=== PATIENT | male | born 1980 | race Caucasian/White ===

== ENCOUNTER 2024-05-04 15:04 | Inpatient (IN) | payer BC, SELFPAY ==
[2024-05-04] VITALS (10 sets, daily range): BP systolic 73–143; BP diastolic 50–85; BMI 48.8; BMI 47.7; BMI 48.2
[2024-05-04 08:23] LABS: % Basophils 0.2 % (0-2); % Eosinophils 0.5 % (0-6); % Immature Granulocytes 0.6 % (0-0.5); % Lymphocytes 10.7 % (20.5-51.1); % Monocytes 11.6 % (1.7-9.3); % Neutrophils 76.4 % (42.2-75.2); Absolute Eosinophils 0.1 10^3/uL (0-0.7); Absolute Immature Granulocytes 0.1 10^3/uL (0-0.05); Absolute Lymphocytes 1.6 10^3/uL (1.2-3.4); Absolute Monocytes 1.8 10^3/uL (0.1-0.6); Absolute Neutrophils 11.6 10^3/uL (1.4-6.5); Hematocrit 37.9 % (39.0-52.0); Hemoglobin 13.4 g/dL (13.0-18.0); Mean Corp Hgb Conc. 35.4 g/dL (33.0-37.0); Mean Corpuscular Hgb 29.5 pg (27.0-31.0); Mean Corpuscular Volume 83.3 fL (80.0-94.0); Mean Platelet Volume 9.3 fL (7.4-10.4); Nucleated Red Blood Cells % 0 % (-); Platelet Count 240 10^3/uL (130-400); Red Blood Cell Count 4.55 10^6/uL (4.70-6.10); Red Cell Dist. Width 12.7 % (11.5-14.5); White Blood Cell Count 15.1 10^3/uL (4.8-10.8)
[2024-05-04 08:45] LABS: COVID-19 Antigen Negative (Negative)
[2024-05-04 08:50] LABS: ALT (SGPT) 47 U/L (0-50); AST (SGOT) 66 U/L (17-59); Albumin 4.3 g/dl (3.5-5.0); Alkaline Phosphatase 65 U/L (38-126); Blood Urea Nitrogen 17 mg/dl (9-20); Calcium 8.6 mg/dl (8.4-10.2); Carbon Dioxide 22 mmol/L (22-30); Chloride 97 mmol/L (98-107); Glucose 164 mg/dl (70-99); Lipase 52 U/L (23-300); Potassium 3.8 mmol/L (3.5-5.1); Sodium 134 mmol/L (135-145); Total Bilirubin 0.7 mg/dl (0.2-1.3); Total Protein 6.7 g/dl (6.3-8.2); eGFR 58.87
--- NOTE | 2024-05-04 09:57 | ED.GENMED ---
History of Present Illness
<Marlena Gan MD, Resident - Last Filed: 05/04/24 14:31>
General
Chief Complaint: Abdominal Pain
Source: patient and significant other
Exam Limitations: none
Time Seen by Provider: 05/04/24 09:28
Nursing documentation reviewed up to this point in time: agreed with
History of Present Illness
History of Present Illness:
44 year old male with history of HTN who presents to the ED for generalized abdominal discomfort, nausea, SOB and fever. Onset was 5 days ago with URI symptoms - cough productive of yellowish phlegm and sinus congestion. 3 days ago, he developed
fever and chills which progressed to include black watery diarrhea x 5-6 times daily, anorexia, nausea and bloating. Symptoms improved yesterday but worsened today, prompting his visit to the ED.
He did take Pepto-Bismol over the weekend, and has used DayQuil/NyQuil, Mucinex. He had a negative COVID test at home and is vaccinated for COVID with multiple boosters.
He has a history of peptic ulcer disease. And has had difficulty sleeping for the past 3 nights due to discomfort from abdominal bloating and SOB from sinus/chest congestion.
Denies chest pain, palpitations, urinary symptoms, testicular pain, recent travel or recent abx use.
Past History
<Marlena Gan MD, Resident - Last Filed: 05/04/24 14:31>
Past History
ED Past Medical History: HTN and Other (peptic ulcer disease)
ED Past Surgical History: None
Patient has exhibited threatening behavior?: No
Social History
Tobacco: Smoker
Alcohol: Binge drinker (10-12 drinks on the weekend)
Drug: None
Living: with family
Review of Systems
<Marlena Gan MD, Resident - Last Filed: 05/04/24 14:31>
Review of Systems
Allergies reviewed?: Yes
All Other Systems: ROS reviewed and negative except as documented in HPI and ROS
Phy Exam
<Marlena Gan MD, Resident - Last Filed: 05/04/24 14:31>
General Physical Exam
General Presentation: other (Appears uncomfortable)
General Skin: warm and dry
General Habitus: obese
General Mental: alert
General Hydration: dry mucous membranes
ENT Exam
ENT Exam: pharynx normal, neck supple and other (No cervical lymphadenopathy)
Eye Exam
Eye Exam: EOMI and conjunctiva normal
Cardiovascular Exam
Cardiovascular Exam: regular rate/rhythm and no murmur
Heart Sounds: distant
Pulmonary Exam
Pulmonary Exam: lungs clear, no rales, no crackles, no rhonchi, no stridor and no wheezing
Respiratory Effort: tachypnea
Gastrointestinal Exam
Gastrointestinal Exam: non tender, distended and other (decreased bowel sounds, no rebound, no guarding)
Course
<Marlena Gan MD, Resident - Last Filed: 05/04/24 14:31>
Orders/Labs/Results
Orders:
Orders
05/04/24 08:17
COVID-19 Antigen Urgent
Source: Nasal Swab
Complete Blood Count/With Diff Urgent
Comprehensive Metabolic Panel Urgent
Lipase Urgent
Influenza A+B Rapid Molecular Urgent
RUPINDER Source: Nasal Swab
Specimen Description:
05/04/24 10:17
Electrocardiogram (*1) Stat
Reason for Study: Shortness of Breath
EKG- Treatment ONCE
CR Chest - 2 Views Urgent
Reason For Exam: cough, SOB
05/04/24 10:20
0.9% Sodium Chloride 1000 ml [Nss] 1,000 ml IV BOLUS
05/04/24 10:23
Stool Culture Urgent
RUPINDER Source: Feces/Stool
Specimen Description:
Ondansetron Injectable [Zofran] 4 mg IV NOW STA
05/04/24 10:24
CT Abd/pelvis W Iv Cont Urgent
Comment:
Reason For Exam: Abdominal distention and diarrhea
05/04/24 12:03
Acetaminophen [Tylenol] 1,000 mg PO NOW STA
05/04/24 12:54
Albuterol [ProAIR HFA INHALER] 4 puff INH R NOW STA
05/04/24 14:00
CefTRIAXone [Rocephin] 2,000 mg IV NOW STA
05/04/24 14:07
Legionella Urinary Antigen Urgent
RUPINDER Source: Urine
Specimen Description:
Strep pneumoniae Antigen Urgent
RUPINDER Source: Urine
Specimen Description:
Azithromycin [Zithromax] 250 mg 0.9% Sodium Chloride 250 ml [Nss] 250 ml IV NOW
05/04/24 14:16
Blood Culture Urgent
RUPINDER Source: Blood/Venous
Specimen Description:
05/04/24 14:17
Admit/Transfer Patient As Directed
Co-Sign Provider:
Level of Care: Inpatient admission
Assign to:: Telemetry
Physician / Group: Htay
Diagnosis: Pneumonia,
Reason for Telemetry: Arrhythmia
Date to Stop Telemetry: 05/07/24
Time to Stop Telemetry: 11:00
Reason for Hospitalization: IV abx
Expected length of stay greater than two midnights?: Yes
ELOS- Estimated Length of Stay in days: 3
I certify the patient meets the requirements for IP care: Yes
05/04/24 14:18
Azithromycin [Zithromax] 250 mg 0.9% Sodium Chloride 250 ml [Nss] 250 ml IV NOW
PRN Pain Medication Management As Directed
May give lesser potent ordered pain med per pt: Yes
preference::
Protocol:: Medication orders for pain may be administered in a
manner that supports deferring to patient preference
when the pt is:
- Requesting an ordered lesser potent pain medication.
Least to most potent pain medications are defined
as: acetaminophen < NSAID < tramadol < opioids
(morphine, oxycodone, hydromorphone).
- Requesting a lesser dose of the same medication IF
ORDERED.
- Requesting a less intrusive route of administration
if both routes are prescribed by the provider (PO <
IV).
05/04/24 14:20
Code Status As Directed
Resuscitation Status: Full Code
05/04/24 14:23
Sputum Culture [Respiratory Culture/Gram Stain] Routine
RUPINDER Source: Sputum
Specimen Description:
05/07/24 11:00
DC Protocol for Telemetry ONCE
Abnormal Lab Results
05/04/24
08:17
WBC 15.1 H 10^3/uL
(4.8-10.8)
RBC 4.55 L 10^6/uL
(4.70-6.10)
Hct 37.9 L %
(39.0-52.0)
Abs Immat Gran (auto) 0.1 H 10^3/uL
(0-0.05)
Absolute Neuts (auto) 11.6 H 10^3/uL
(1.4-6.5)
Absolute Monos (auto) 1.8 H 10^3/uL
(0.1-0.6)
Immature Gran % 0.6 H %
(0-0.5)
Neutrophils % 76.4 H %
(42.2-75.2)
Lymphocytes % 10.7 L %
(20.5-51.1)
Monocytes % 11.6 H %
(1.7-9.3)
Sodium 134 L mmol/L
(135-145)
Chloride 97 L mmol/L
(98-107)
Creatinine 1.5 H mg/dL
(0.7-1.3)
Glucose 164 H mg/dl
(70-99)
AST 66 H U/L
(17-59)
05/04/24 08:17
05/04/24 08:17
Vital Signs
Initial and Last Documented VS:
Initial Vital Signs
Temp Pulse Resp BP Pulse Ox
98.7 F 125 20 116/78 94
05/04/24 08:06 05/04/24 08:06 05/04/24 08:06 05/04/24 08:06 05/04/24 08:06
Last Documented Vital Signs
Temp Pulse Resp BP Pulse Ox
102.7 F H 118 28 118/63 93
05/04/24 12:00 05/04/24 12:00 05/04/24 12:00 05/04/24 12:00 05/04/24 12:00
<Laurel Aguilera MD - Last Filed: 05/04/24 14:02>
Orders/Labs/Results
Orders:
Orders
05/04/24 08:17
COVID-19 Antigen Urgent
Source: Nasal Swab
Complete Blood Count/With Diff Urgent
Comprehensive Metabolic Panel Urgent
Lipase Urgent
Influenza A+B Rapid Molecular Urgent
RUPINDER Source: Nasal Swab
Specimen Description:
05/04/24 10:17
Electrocardiogram (*1) Stat
Reason for Study: Shortness of Breath
EKG- Treatment ONCE
CR Chest - 2 Views Urgent
Reason For Exam: cough, SOB
05/04/24 10:20
0.9% Sodium Chloride 1000 ml [Nss] 1,000 ml IV BOLUS
05/04/24 10:23
Stool Culture Urgent
RUPINDER Source: Feces/Stool
Specimen Description:
Ondansetron Injectable [Zofran] 4 mg IV NOW STA
05/04/24 10:24
CT Abd/pelvis W Iv Cont Urgent
Comment:
Reason For Exam: Abdominal distention and diarrhea
05/04/24 12:03
Acetaminophen [Tylenol] 1,000 mg PO NOW STA
05/04/24 12:54
Albuterol [ProAIR HFA INHALER] 4 puff INH R NOW STA
05/04/24 14:00
CefTRIAXone [Rocephin] 2,000 mg IV NOW STA
05/04/24 14:07
Legionella Urinary Antigen Urgent
RUPINDER Source: Urine
Specimen Description:
Strep pneumoniae Antigen Urgent
RUPINDER Source: Urine
Specimen Description:
Azithromycin [Zithromax] 250 mg 0.9% Sodium Chloride 250 ml [Nss] 250 ml IV NOW
05/04/24 14:16
Blood Culture Urgent
RUPINDER Source: Blood/Venous
Specimen Description:
05/04/24 14:17
Admit/Transfer Patient As Directed
Co-Sign Provider:
Level of Care: Inpatient admission
Assign to:: Telemetry
Physician / Group: Htay
Diagnosis: Pneumonia,
Reason for Telemetry: Arrhythmia
Date to Stop Telemetry: 05/07/24
Time to Stop Telemetry: 11:00
Reason for Hospitalization: IV abx
Expected length of stay greater than two midnights?: Yes
ELOS- Estimated Length of Stay in days: 3
I certify the patient meets the requirements for IP care: Yes
05/04/24 14:18
Azithromycin [Zithromax] 250 mg 0.9% Sodium Chloride 250 ml [Nss] 250 ml IV NOW
PRN Pain Medication Management As Directed
May give lesser potent ordered pain med per pt: Yes
preference::
Protocol:: Medication orders for pain may be administered in a
manner that supports deferring to patient preference
when the pt is:
- Requesting an ordered lesser potent pain medication.
Least to most potent pain medications are defined
as: acetaminophen < NSAID < tramadol < opioids
(morphine, oxycodone, hydromorphone).
- Requesting a lesser dose of the same medication IF
ORDERED.
- Requesting a less intrusive route of administration
if both routes are prescribed by the provider (PO <
IV).
05/04/24 14:20
Code Status As Directed
Resuscitation Status: Full Code
05/04/24 14:23
Sputum Culture [Respiratory Culture/Gram Stain] Routine
RUPINDER Source: Sputum
Specimen Description:
05/07/24 11:00
DC Protocol for Telemetry ONCE
Abnormal Lab Results
05/04/24
08:17
WBC 15.1 H 10^3/uL
(4.8-10.8)
RBC 4.55 L 10^6/uL
(4.70-6.10)
Hct 37.9 L %
(39.0-52.0)
Abs Immat Gran (auto) 0.1 H 10^3/uL
(0-0.05)
Absolute Neuts (auto) 11.6 H 10^3/uL
(1.4-6.5)
Absolute Monos (auto) 1.8 H 10^3/uL
(0.1-0.6)
Immature Gran % 0.6 H %
(0-0.5)
Neutrophils % 76.4 H %
(42.2-75.2)
Lymphocytes % 10.7 L %
(20.5-51.1)
Monocytes % 11.6 H %
(1.7-9.3)
Sodium 134 L mmol/L
(135-145)
Chloride 97 L mmol/L
(98-107)
Creatinine 1.5 H mg/dL
(0.7-1.3)
Glucose 164 H mg/dl
(70-99)
AST 66 H U/L
(17-59)
05/04/24 08:17
05/04/24 08:17
Vital Signs
Initial and Last Documented VS:
Initial Vital Signs
Temp Pulse Resp BP Pulse Ox
98.7 F 125 20 116/78 94
05/04/24 08:06 05/04/24 08:06 05/04/24 08:06 05/04/24 08:06 05/04/24 08:06
Last Documented Vital Signs
Temp Pulse Resp BP Pulse Ox
102.7 F H 118 28 118/63 93
05/04/24 12:00 05/04/24 12:00 05/04/24 12:00 05/04/24 12:00 05/04/24 12:00
<Marlena Gan MD, Resident - Last Filed: 05/04/24 14:31>
MDM/Problems Addressed
Differential Diagnosis Includes:
Pericardial effusion, pericarditis, pneumonia, C. difficile, viral illness, gastroenteritis, colitis, upper GI bleed
MDM/Problems Addressed:
Ill-appearing patient.
Distant heart sounds possibly due to body habitus versus pericardial effusion/pericarditis. Will get EKG.
URI symptoms with productive cough with clear lungs to auscultation, concern for pneumonia versus viral URI, will get chest x-ray to assess.
Viral illness/gastroenteritis is likely given URI symptoms followed by nausea, abdominal discomfort and diarrhea. Colitis possible given abdominal distention, black stool/watery diarrhea. No identifiable risk factors for C. difficile colitis given
no recent travel or recent ABX use. Will check stool sample and CT abdomen and pelvis with IV contrast.
History of upper peptic ulcer disease, with black watery diarrhea on presentation. Concern for ongoing upper GI bleed versus adverse effect of Pepto-Bismol. Will get Hemoccult.
CBC with elevated white count with left shift, chemistry with mildly elevated AST, elevated creatinine 1.5, normal lipase
Negative hemoccult
Will give Zofran and IV fluids and reassess shortly
Updates: Pt complains of hemoptysis. Wheezing on auscultation. Will give albuterol inhaler
- CXR amd CT concerning for severe pneumonia. Begin Abx and admit to hospitalist service
<Marlena Gan MD, Resident - Last Filed: 05/04/24 14:31>
*Critical Care Note
Total Time (30-74mins, 75-104mins- exclusive of procedures): Not Applicable
ED Attending Note
<Marlena Gan MD, Resident - Last Filed: 05/04/24 14:31>
-
Portions of this chart may have been created with voice recognition software.� Occasional wrong word or��sound alike� substitutions may have occurred due to the inherent limitations of voice recognition software.
<Laurel Aguilera MD - Last Filed: 05/04/24 14:02>
ED Attending Note
Patient seen and examined by attending physician: Yes
I performed a history and physical exam of patient and discussed management with resident, I reviewed resident's note and agree with documented findings and plan of care.: Yes
ED Attending Note:
Patient is a 44-year-old male with history of peptic ulcer disease, hypertension presenting to the emergency department with abdominal pain and URI symptoms. 5 days ago he developed URI symptoms with cough congestion. He then developed GI symptoms
that he thought was related to food intake. Has been having countless episodes of dark black watery diarrhea and some nausea. He has been having subjective fevers. He is having occasional shortness of breath and significant chest congestion with
productive cough. He does drink alcohol on the weekends. He did drink 2 days ago about 10-12. Denies any recent travel. No recent antibiotics. No hospitalization. No urinary symptoms. No testicular pain. He does have a history of an ulcer is
not currently on any antacids.
GENERAL: Appears uncomfortable appearing
HEENT: normocephalic, extraocular movements intact, dry oral mucosa
NECK: normal inspection
RESPIRATORY: no respiratory distress, clear to auscultation bilaterally
CARDIOVASCULAR: regular rate and rhythm
ABDOMEN/: soft, distended, non-tender to palpation, no rebound or guarding
EXTREMITIES: non-tender, no edema/swelling
NEUROLOGIC: awake and alert, moves all extremities
SKIN: warm
MDM: 44-year-old male with history of alcohol use, peptic ulcer disease presenting to the emergency department with URI symptoms as well as bloody diarrhea. Vitals are unremarkable and exam does show a man who appears uncomfortable with dry oral
mucosa and a distended abdomen. Differential is broad but consists of pneumonia flu COVID versus viral enteritis. Could be a component of upper GI bleed. Given the shortness of breath could also be pericarditis. Will check blood work EKG chest
x-ray. Will obtain CT scan of the abdomen. Will obtain stool sample. Will give IV fluids and treat symptomatically.
Chest x-ray per my interpretation bibasilar pneumonia. CT scan without any acute abnormality in the abdomen. Ambulatory pulse ox was 88%. He does have some wheezing and does have history of smoking so we will give albuterol inhaler. Will also
start IV antibiotics. Discussed with hospitalist who accepted patient
Discharge Plan
Departure
Patient Disposition: Admit
Date of Disposition: 05/04/24
Time of Disposition: 14:01
Presentation/result/management discussed w/ accepting /: Hospitalist
Discharge Problem:
Pneumonia
Referrals:
Yas Altamirano DO [Family Provider] -
Discharge Date and Time
Print Language: MAORI
[2024-05-04] MEDS: ZOFRAN 4 MG IV (10:38)
[2024-05-04] MEDS: NSS 1000 IV ×3 (10:38→17:41)
[2024-05-04] MEDS: TYLENOL 1000 MG PO ×2 (12:56→21:20)
[2024-05-04] MEDS: ProAIR HFA INHALER 4 PUFF INH (13:58)
--- NOTE | 2024-05-04 14:32 | W.PN.UPDATE ---
Update Note
Progress Note Update
This note serves as an addendum to the H&P by multicut line operator GOPAL Chel WRIGHT
HPI
44M with massive Class III obesity ( BMI 48 ) HTN on Losartan pw generalized abdominal discomfort, nausea, SOB and fever preceeded by URI symptoms - cough productive of yellowish phlegm and sinus congestion.
He did take Pepto-Bismol over the weekend, and has used DayQuil/NyQuil, Mucinex. He had a negative COVID test at home and is vaccinated for COVID with multiple boosters.
ROS : cough up pink frothy sputum
PHX: as above
Reviewed VS: T 102.7 tachycardic BP 118/63 tachynic POx 93 at rest, POx hi 80s on
PE
Gen: severe obesity
HEENT: anicteric
Neck: supple
Lungs: limited exan due to body habitat
Cor: RRR S1 S2
Abdomen: soft abdomen
SOCIAL SCIENCE PROFESSOR: AAO3
MS: no edema
Psych: normal affect and mood
Data
WCC 15.1
Na 134
Cr 1.5
Pending BCx 1
Pending Legionella
Pending Strep Pneumonia Ag
CXR: Bilateral pneumonia, right worse than left.
CT Abd/pelvis W Iv Cont
1. No significant abnormality identified in the abdomen or pelvis, as described above.
2. Severe bilateral multifocal pneumonia in the partially visualized lung bases.
ASSESSMENT & PLAN
Pending Rx reconciliation
Sepsis due to PNA
B/L severe PNA suspect CAP
Asso. acute hypoxic RI
Associated with ? pink frothy hemoptysis
- check BCx 1
- check Ur Legionella
- Ur Strep Pneumonia ag
- s/p NS 1 L - cont NS @ 100
- Cont IV CFTZ 1gm daily and PO Azitromycin 500 mg daily
- O2 tot titrate POx 94
OSIEL due to sepsis
- Hold Losartan
- IV NS @ 100 /H
- f/u Cr in AM
Essential HTN - soft BP due to sepsis
- held Losartan
- observe BP
- IVF
DVT Px: SCD
Code: Full code
IP TLM
--- NOTE | 2024-05-04 14:47 | HPS.HSE ---
Family Physician
-
Family Physician: Yas Altamirano
Chief Complaint
-
Fever, and Cough
History of Present Illness
Patient is a 44 yo male with hx of HTN presents with abdominal pain, cough, SOB, and fever. His symptoms began 5 days ago with sinus pressure, congestion, and productive cough. He notes his daughter was sick with a cold recently so he thought he
caught her cold. Then 3 days ago he developed abdominal pain, bloating, nausea, vomiting and diarrhea after eating pork chops, as well as fevers. He describes the diarrhea as large-volume watery stools without blood, and the last time he vomited was
yesterday. Within the last couple days he has also noticed a red tinge to the sputum he's been coughing up. He tried to control his symptoms with Dayquil, Nyquil and nasal lavage without relief. Due to persistent/worsening symptoms he presented to
the emergency department for evaluation. He denies any chronic lung conditions, and denies any prior history of pneumonia.
Medical History
Past Medical History
Past Medical History: Reports Other
Additional Past Medical History:
Essential Hypertension
Hyperlipidemia
Obstructive Sleep Apnea
Class III Obesity
Past Surgical History: Reports None
Social History
Tobacco: Non-smoker
Alcohol: Binge drinker (10 Beers on Saturdays)
Family History
Family History: Not pertinent
Allergies / Home Medications
Allergies reflects when Allergies were last updated in [facility].
Home Medications with original date entered in [facility]
Allergy/Medication List:
Allergies
Allergy/AdvReac Type Severity Reaction Status Date / Time
No Known Allergies Allergy Unverified 05/04/24 08:09
Home Medications
irbesartan 300 mg tablet 300 mg PO DAILY 05/04/24
Review of Systems
-
A 12 point ROS was completed and negative except as noted: Yes
Constitutional: Reports Fever and Chills
Respiratory: Reports Cough and Trouble Breathing
Abdomen/GI: Reports Nausea and Other (Abdominal Bloating); Denies Abdominal Pain
Physical Exam
Vital Signs
Vital Signs
Temp Pulse Resp BP Pulse Ox
102.7 F H 118 28 118/63 93
05/04/24 12:00 05/04/24 12:00 05/04/24 12:00 05/04/24 12:00 05/04/24 12:00
Physical Exam
General: Comfortable and Conversant
HEENT: Anicteric and Moist mucous membranes
Respiratory: Non Labored Respirations and Decreased Breath Sounds (Bilateral Bases)
Cardiac: S1/S2 and Regular Rhythm
GI: Soft, Non Tender and Other (Protuberant)
Rectal: Deferred by Provider
Musculoskeletal: No Clubbing, No Cyanosis and No Edema
Skin: Warm and Dry
Neuro: Awake, Alert, Oriented and Nonfocal/grossly intact
Psych: Calm
Laboratory Results
-
05/04/24 08:17
05/04/24 08:17
Laboratory Results
Total Bilirubin 0.7 mg/dl (0.2-1.3) 05/04/24 08:17
AST 66 U/L (17-59) H 05/04/24 08:17
ALT 47 U/L (0-50) 05/04/24 08:17
Alkaline Phosphatase 65 U/L (38-126) 05/04/24 08:17
Lipase 52 U/L (23-300) 05/04/24 08:17
Chest X-Ray:
Bilateral pneumonia, right worse than left.
Abd/Pelvis CT Scan:
1. No significant abnormality identified in the abdomen or pelvis, as described above.
2. Severe bilateral multifocal pneumonia in the partially visualized lung bases.
Data Reviewed
-
Lab Data: Labs Reviewed by me
Impression/Plan
-
Severe Sepsis secondary to Community Acquired Pneumonia
-Continue Ceftriaxone and Azithromycin
-Check strep and legionella antigen
-Check blood culture
-Monitor pulse ox
Elevated Creatinine, suspect OSIEL but no prior blood work for comparison
-Hold irbesartan
-Give IVFs
Essential Hypertension
-Hold irbesartan
Obstructive Sleep Apnea
-Patient is intolerant to statins
Class III Obesity
-Affects all aspects of care
DVT proph: SCDs
Code Status: Full Code
[2024-05-04] MEDS: ROCEPHIN 2000 MG IV (15:51)
[2024-05-04] MEDS: ZITHROMAX INFUSION 250 IV (15:57)
[2024-05-04 16:13] LABS: Lactic Acid 1.8 mmol/L (0.7-2.0)
--- NOTE | 2024-05-04 16:50 | PTCARENOTE ---
05/04- Patient transferred and oriented to unit. AAOX3, but SOB, PITTMAN, coughing productive cough. Lungs exp wheezing BL throughout with loud crackles at BL bases. POX=91% on RA; PH=402, T=100.6 Axillary. Attempted to apply 2L O2 via cannula. But
he repeatedly productively coughs and blows his nose therefore blowing it off. Elevated HOB ~40degrees. Nails cyanotic. Notified Physician immediately. Continue to monitor.
[2024-05-04] MEDS: ProAIR HFA INHALER 2 PUFF INH ×2 (17:13→19:27)
[2024-05-04] MEDS: TYLENOL 650 MG PO (17:38)
[2024-05-04] MEDS: MORPHINE SULFATE 1 MG IV (18:26)
--- NOTE | 2024-05-04 19:30 | PTCARENOTE ---
Patient vital signs at 1926 were 100.1 degrees F, 106/62, 117 HR, and 91% on 4L ventimask. RN asked system administration manager CONTRACT TECHNICIAN to assess patient due to vital signs and patient`s work of breathing. Order placed for patient to be transferred to IMU.
--- NOTE | 2024-05-04 20:01 | W.PN.UPDATE ---
Update Note
Progress Note Update
Asked to see pt for eval
At bedside pt is tachypneic, tachycardiac (120s) with oxygen in upper 80s on ventimask (though pt does have it off on my eval due to taking a drink of his gatoraide. Education provided about conserving his respiratory energy and also not drinking or
eating laying flat (which he was doing).
Explained that due to his respiratory status will transfer to IMU for closer monitoring. May need HFNC eventually if oxygen sats don't improve. a bedside feels comfortable with this plan and transfer.
[2024-05-04] MEDS: MUCINEX 600 MG PO (21:20)
[2024-05-04] MEDS: OCEAN, SALINE MIST 50 SPRAYS NASAL (21:21)
--- NOTE | 2024-05-04 21:25 | PTCARENOTE ---
Pt arrived from [facility]. Pt on venti mask at [facility], extremely dyspneic on exertion. Notified MANAGER NUCLEAR of need for order for high flow (per note). Contacted resp- placed on 15 L midflow. sats improved form 88% to 95% but RR still 30-34, HR 120's. pt coughing
up pink tinged sputum. also made MANAGER NUCLEAR aware, advised to tell pt to stop drinking red gatorade and that it could be blood tinged from irritation. Will monitor. Educated pt on importance of sitting up to help his breathing. patient also febrile 102.5,
gave 1 gram of PO tylenol.
Will continue to monitor.
[2024-05-05] VITALS (28 sets, daily range): BP systolic 50–151; BP diastolic 14–128; BMI 48.2; BMI 48.1
[2024-05-05] MEDS: NSS 1000 IV (02:30)
--- NOTE | 2024-05-05 02:30 | PTCARENOTE ---
Pt on 15L midflow and tachypneic and +PITTMAN. Patient restless as well. Notified NET WEB DEVELOPER. Also mentioned the increase of blood tinged-pink sputum. Asked if we should hold or decrease rate of fluids for now and possibly obtain CXR. Patient continues to have
rales throughout.
NET WEB DEVELOPER said to draw AM labs early. Added on proBNP. Also, respiratory came and increased patient to 50L/100% HFNC around 0200. NET WEB DEVELOPER ordered a d-dimer and ABG as well. ABG results in chart. After positive d-dimer, pt sent to stat CT scan. Due to increased
o2 demands, patient transferred to ICU for higher level of care.
--- NOTE | 2024-05-05 03:00 | DOWNTIME ---
There was a [employer] Client Lumber Piler Operator Downtime on 04/07/2024 from 0100 to 04/07/2024 at 0252. Downtime documentation of patient's care, including medication administrations, has been reconciled in the electronic record per guidelines. Refer to the
patient's paper chart under the miscellaneous tab to see printed paper medication records and downtime forms.
[2024-05-05 03:30] LABS: Hematocrit 34.8 % (39.0-52.0); Hemoglobin 12.7 g/dL (13.0-18.0); Mean Corp Hgb Conc. 36.5 g/dL (33.0-37.0); Mean Corpuscular Hgb 29.6 pg (27.0-31.0); Mean Corpuscular Volume 81.1 fL (80.0-94.0); Mean Platelet Volume 9.2 fL (7.4-10.4); Platelet Count 228 10^3/uL (130-400); Red Blood Cell Count 4.29 10^6/uL (4.70-6.10); Red Cell Dist. Width 12.9 % (11.5-14.5); White Blood Cell Count 15.7 10^3/uL (4.8-10.8)
[2024-05-05 03:44] LABS: NT-proBNP 1950 pg/ml
[2024-05-05 03:56] LABS: Blood Urea Nitrogen 15 mg/dl (9-20); Carbon Dioxide 20 mmol/L (22-30); Chloride 100 mmol/L (98-107); Estimated Creatinine Clearance 96 ml/min; Glucose 159 mg/dl (70-99); Potassium 3.8 mmol/L (3.5-5.1); Sodium 134 mmol/L (135-145); eGFR > 60.00
--- NOTE | 2024-05-05 04:11 | W.PN.UPDATE ---
Update Note
Progress Note Update
Patient continue to complain of SOB, increasing of O2 demands, and tachypneic. Productive cough with red tinge sputum. Denied chest pain. Diminished lung sound on exam.
-Currently on high flow 50L/100% with SPO2 94% -96%.
-BNP, abg, D dimer, CBC, BMP ordered.
-BNP 1950 no previous result to compare, will place IV fluids on hold for now.
-D Dimer elevated 1.05, CT PE ordered.
-Discussed the case with the lead burner supervisor and will transfer the patient to ICU.
- Called the /Clarissa and updated.
[2024-05-05 04:47] LABS: D-Dimer 1.05 ug/mlFEU (0.00-0.50)
[2024-05-05 05:14] LABS: B.E. -1.1 mmol/L; HCO3 22.4 mmol/L (21-28); O2 Saturation % 91.5 % (94-98); PCO2 33 mmHg (35-48); pH 7.44 (7.35-7.45)
[2024-05-05 05:20] LABS: PO2 54 mmHg (83-108)
[2024-05-05] MEDS: OFIRMEV 100 IV (06:34)
[2024-05-05] MEDS: ProAIR HFA INHALER 2 PUFF INH (07:19)
--- NOTE | 2024-05-05 07:38 | CON.INTV ---
Consultation
Consultation Request
Date/Time Consultation Requested: 05/05/2024-7 AM
Date/Time Consultation Performed: 05/05/2024-7:15 AM
Requesting Provider: Hospitalist
Performing Provider: Dr. Naylor
Reason for Consultation: Shortness of breath/pneumonia/critical care management
Medical History
-
Chief Complaint: Shortness of breath, diarrhea, hemoptysis
History of Present Illness:
44-year-old morbidly obese male with history of untreated obstructive sleep apnea, hypertension who presented with abdominal pain, diarrhea, cough, shortness of breath, fevers noted to have multifocal pneumonia requiring high FiO2 transfer to ICU
for potential intubation-doorperson consulted for respiratory failure/pneumonia/hemoptysis/critical care management 05/05/2024. Patient is lethargic, hungry, no complaints of shortness of breath that is improved on high flow oxygen. He continues
to complain of hemoptysis. He had fevers and chills. He does not have any pleurisy. He does not complain of any abdominal pain but has diarrhea. He is hungry and asking to eat. Does not complain of lower extremity edema or new weakness. He had
some sick contacts.
Past Medical History
Past Medical History: None (Hypertension. Hyperlipidemia. Untreated CLIF. Morbid obesity.)
Social History
Tobacco: Smoker (5 cigarettes on Saturdays only)
Alcohol: Occasional (On Saturdays only)
Drug: None
Personal:
Living: With Family
Occupational Exposures: No known asbestos exposure
Environmental Exposures: No known tuberculosis exposure
Family History
Family History: Reviewed & Not Pertinent
Allergies / Home Medications
Allergies
Allergy/AdvReac Type Severity Reaction Status Date / Time
No Known Allergies Allergy Unverified 05/04/24 08:09
Home Medications
�Medication �Instructions �Recorded �Confirmed �Last Taken �Type
irbesartan 300 mg tablet 300 mg PO DAILY 05/04/24 05/04/24 05/04/24 History
Review of Systems
-
Unable to Obtain full review of systems at this time due to: Other (Per HPI)
Vitals / Labs / Diagnostic Testing
Vital Signs
Temp Pulse Resp BP Pulse Ox
100.7 F H 111 24 122/76 96
05/05/24 03:01 05/05/24 07:23 05/05/24 07:23 05/05/24 06:30 05/05/24 07:23
Lab Data
05/05/24 03:12
05/05/24 03:12
Laboratory Results
05/05/24
05:05
pH 7.44
pCO2 33 L
pO2 54 L*
HCO3 22.4
O2 Delivery Level
Microbiology
05/04/24 08:17 Nasal Swab Influenza Types A & B (UZIEL) - Final
Negative for Influenza A & B, NAAT
Negative results must be combined with clinical observations
and patient history.
Nucleic Acid Amplification test (NAAT)performed on the
[employer] platform.
Diagnostic Testing:
Physical Exam
-
Exam:
Well-nourished and well-developed in no apparent distress
HEENT-atraumatic, normocephalic, thick neck
Neck-supple, no JVD, no bruit
Heart-regular rate and rhythm-no murmurs, rubs or gallops
Chest with diminished breath sounds, few crackles, few rhonchi, no wheezes
Back-no tenderness
Abdomen-soft, nontender, nondistended, no hepatosplenomegaly
Extremities-no cyanosis, clubbing, edema and good peripheral pulses
Integument-intact, no rashes, lesions or ecchymosis
Neurology-alert and oriented, nonfocal motor and sensory exam
Assessment
-
44-year-old morbidly obese male with history of untreated obstructive sleep apnea, hypertension who presented with abdominal pain, diarrhea, cough, shortness of breath, fevers noted to have multifocal pneumonia requiring high FiO2 transfer to ICU
for potential intubation-doorperson consulted for respiratory failure/pneumonia/hemoptysis/critical care management 05/05/2024.
Respiratory failure-acute hypoxemic due to multifocal pneumonia
Community-acquired pneumonia-multifocal
Hemoptysis
Severe sepsis
OSIEL
Leukocytosis
Mild tvjirx-vwbbuynwfw-zqfzuxvmed 12.7
Mild hyponatremia
Metabolic acidosis
Hyperglycemia
Transaminitis-elevated AST
Conditions present prior to admission:
Hypertension.
Hyperlipidemia.
Untreated CLIF.
Morbid obesity
Plan
Patient was transferred to medical intensive care unit for potential intubation
Supplemental oxygen as needed-currently on high flow
Positional [id number] with exclusive right greater than left pneumonia or supine
Noninvasive ventilation if needed
Intubated mechanically ventilated if necessary
Incentive spirometry
Mucus clearing devices
Mucolytic's
Monitor hemoptysis
Nebulizers if needed
Check cultures
Urine Legionella and streptococcal antigens pending
Blood cultures pending
Sputum culture pending
Empiric antibiotics to cover community-acquired pneumonia-ceftriaxone 2 g every 24 hours in addition to azithromycin 500 mg daily
Infectious disease consultation recommended
Check ESR-if greater than say 120 then vasculitis workup
Follow radiographically
According to a systemic review and meta-analysis of randomized control trials on the efficacy and safety of corticosteroids for the treatment of community-acquired pneumonia (Journal of critical care-2023) the patient would benefit from steroids
which has been shown to reduce the incidence of shock, need for mechanical ventilation, decreased length of hospital and ICU stay as well as decrease mortality. Hydrocortisone was the only steroid that decreased mortality according to the
meta-analysis. Hydrocortisone 200 mg once for load followed by infusion 50 mg IV every 6 hours will begin.
Monitor renal function
Nephrology evaluation if renal function worsens
Check urine analysis to look for hematuria, casts, etc.
Follow hemoglobin
Transfuse if needed
DVT prophylaxis-mechanical for now with significant hemoptysis, however, low threshold to initiate chemical prophylaxis with heparin
Nutrition
Early mobilization
Reviewed sleep apnea/sleep disordered breathing symptomatology, associations with untreated sleep apnea and treatment options-will recommend outpatient pulmonary and sleep disorders follow-up
Reviewed with and family members in detail at the bedside
Critical care statement: A total of 55 minutes of critical care time was provided for this patient today. This includes management of unstable vital signs, evaluation of the patient at bedside, reviewing the patient's pertinent medical records
including radiographs, management of respiratory failure, pressor management if needed, microbiology, laboratory evaluations, and discussion with primary team, consultants, pharmacy, nutrition, physical therapy, case management, charge nurse,
critical care nursing, and respiratory therapy.
Diagnostic data:
Chest x-ray 05/04/2024-bilateral pneumonia right greater than left
CT abdomen and pelvis 05/04/2024-no significant abnormalities identified in the abdomen or pelvis, severe bilateral multifocal pneumonia in the partially visualized lung bases
CT chest 05/05/2024-no evidence for pulmonary embolism, extensive severe bilateral multifocal pneumonia
Data Reviewed
-
EKG: Report reviewed by me
Radiology: Image personally visualized and interpreted and Report reviewed by me
CT Scan: Image personally visualized and interpreted and Report reviewed by me
Medical Tests (Nuc Med, Echo etc): Report reviewed by me
Labs: Labs reviewed by me
Old Records: Reviewed
Critical Care Time (in minutes): 55
--- NOTE | 2024-05-05 07:45 | PTCARENOTE ---
Rec'd pt from IMU after CT to rule out PE, pt anxious, yet cooperative. Rectal temp 104, rectal probe placed for close monitoring. ST on monitor. IV lines flushed/patent. Ofirmev given as ordered. 100%/50L, with RT at bedside for treatment. Reached
out to [facility] for IV morphine, pending from pharmacy. Temp 102 after Ofirmev. Rales at the bases, diminished throughout, coughing up pink frothy sputum. Sat currently 98% side lying. Keeping NPO, resp status tenuous. Urinal. Report given to
oncoming shift.
--- NOTE | 2024-05-05 07:59 | W.PN.HOSP.TC ---
Today's Communication/Plan
-
see A/P
Assessment / Plan
Assessment / Plan
HPI: 44 yo male with PMH HTN presented with abdominal pain, cough, SOB, and fever. His symptoms began 5 days SPICE MILLER with sinus pressure, congestion, and productive cough. He notes his daughter was sick with a cold recently so he thought he caught her
cold. Then 3 days SPICE MILLER he developed abdominal pain, bloating, nausea, vomiting and diarrhea after eating pork chops, as well as fevers. He describes the diarrhea as large-volume watery stools without blood, and the last time he vomited was the day
SPICE MILLER. Within the last couple days he has also noticed a red tinge to the sputum he's been coughing up. He tried to control his symptoms with Dayquil, Nyquil and nasal lavage without relief. Due to persistent/worsening symptoms he presented to the
emergency department for evaluation. He denies any chronic lung conditions, and denies any prior history of pneumonia.
A/P:
# Severe Sepsis secondary to Community Acquired Pneumonia
CXR noted Bilateral pneumonia, right worse than left.
CT Chest: negative for PE, confirmed extensive severe bilateral multifocal pneumonia
CT AP: No significant abnormality identified
Continue Ceftriaxone and Azithromycin
Cont Duonebs with Levalbuterol
Follow Strep and Legionella antigen
Follow sputum culture
Follow blood culture
Check MRSA screen
COVID/Flu negative
# Acute hypoxic respiratory failure
Placed on high flow 50 L at 100%, cont and wean as tolerated
Pulm/lock technician consulted
# OSIEL, improved
SCr 1.5 on admission, today at 1.3
s/p IVF
Cont to hold SPICE MILLER irbesartan
# Essential Hypertension
Hold SPICE MILLER irbesartan
# Class III Obesity, Affects all aspects of care
# Obstructive Sleep Apnea
BMI 48
encourage prone position
DVT proph: SCDs
Code Status: Full Code
DW at bedside
CC Mx for acute/severe hypoxic raspatory failure, CC time 40 min
Anticipated Discharge: > 48 hours
Subjective/Interval History
-
Date of Service: May 05, 2024
Objective Data
-
Labs:
Laboratory Results
05/05/24 05/05/24
03:12 05:05
WBC 15.7 H
Hgb 12.7 L
Hct 34.8 L
Plt Count 228
HCO3 22.4
Sodium 134 L
Potassium 3.8
Chloride 100
Carbon Dioxide 20 L
BUN 15
Creatinine 1.3
Glucose 159 H
Calcium 8.0 L
Vital Signs:
Vital Signs
Temp Pulse Resp BP Pulse Ox
38.8 C H 111 24 122/76 96
05/05/24 07:45 05/05/24 07:23 05/05/24 07:23 05/05/24 06:30 05/05/24 07:47
I&O
05/04/24 05/05/24 05/06/24
06:59 06:59 06:59
Intake Total 1200 / 1200
Output Total 1000 / 1000 300 / 300
Balance 200 / 200 -300 / -300
Review of Systems
-
Respiratory: Reports Cough and Trouble Breathing
Physical Exam
-
General: Well Developed, Well Nourished, Comfortable, Respiratory Distress, Conversant and Morbidly Obese
HEENT: Normocephalic, Atraumatic, Nose Appears Normal, Ears Appear Normal and Oxygen (high flow NC)
Respiratory: Crackles and Non Labored Respirations
Cardiac: Regular Rhythm and S1/S2
GI: Soft, Nontender, Nondistended and Normal Bowel Sounds
Skin: Warm and Dry
Neuro: Awake, Alert and Oriented
Psych: Calm and Intact Judgement/Insight
Data Reviewed
-
Diagnostic Radiology: Image personally visualized and interpreted and Report Reviewed by me
CT Scan: Report Reviewed by me
Labs: Labs Reviewed by me
[2024-05-05] MEDS: MORPHINE SULFATE 1 MG IV ×2 (08:09→22:07)
[2024-05-05] MEDS: ZITHROMAX 500 MG PO (08:09)
[2024-05-05] MEDS: MUCINEX PO ×3 (08:10→20:53)
--- NOTE | 2024-05-05 08:30 | PTCARENOTE ---
pt received from IMU at 0700 , pt increasing with SOB , needing more 02 requirements, prior to transfer to ICU pt had a stat CT scan of lungs for concern of a PE , as per radiology pt scan is negative for PE , pt started on HFNC 60L and 100%FIO2
sats are currently 97% ,pt is tachypneic with Resp rate in 30s , he is coughing up bloody mucous , labs noted, , pt given 1mg IV morphine for Resp distress , pt and parents at bedside and participated in ICU rounds on patient and plan of care .
[2024-05-05] MEDS: ROCEPHIN 2000 MG IV (10:15)
[2024-05-05] MEDS: STERILE WATER FOR INJECTION 20 ML IV (10:15)
[2024-05-05] MEDS: SOLU-CORTEF 200 MG IV (11:01)
[2024-05-05 11:54] LABS: Erythrocyte Sed Rate 34 mm/hour (0-20)
[2024-05-05] MEDS: XOPENEX 1.25 MG INHALANT SOLUTION INH ×2 (12:03→19:23)
[2024-05-05] MEDS: ATROVENT NEBULES 0.5 MG INH ×2 (12:04→19:23)
[2024-05-05 12:19] LABS: Urine Albumin Trace (Neg - Trace); Urine Bilirubin Negative (Negative); Urine Character Clear (Clear); Urine Color Yellow; Urine Glucose Negative (Negative); Urine Ketone Negative (Negative); Urine Leukocyte Negative (Negative); Urine Nitrite Negative (Negative); Urine Occult Blood 2+ (Negative); Urine Specific Gravity 1.015 (<1.030); Urine Urobilinogen Negative (Neg - 1+)
[2024-05-05] MEDS: TYLENOL 650 MG PO (12:21)
[2024-05-05 12:36] LABS: Urine Bacteria Few (Negative); Urine Red Blood Cell 0-2 /HPF (0-2); Urine Squamous Cell 0-2 /LPF (Few)
[2024-05-05 13:07] LABS: C-Reactive Protein > 270.00 mg/L (0.0-10.00)
--- NOTE | 2024-05-05 13:34 | PTCARENOTE ---
antibiotics given ,pt also received 200mg IV Solucortef at 11:00 , he is now much improved overall , he is now OOB in chair , his is less toxic looking , he continues with 100% fio2 and 16L on HFNC his sats are 97% , he is on a regular diet , his
appetite is fair , tylenol given for temp of 102.1
--- NOTE | 2024-05-05 16:06 | CON.ID ---
Addendum entered and electronically signed by Alessandra Jewell MD 05/05/24 16:41:
I personally performed a history and physical exam of the patient and discussed management with the resident. I reviewed the resident's note and agree with the documented findings and plan of care HPI/CC.
# Severe multifocal community-acquired PNA
# Acute hypoxemic respiratory failure
# Severe sepsis, fever, leukocytosis
# Diarrhea
- ? Legionella - hyponatremia and diarrhea can be associated with Legionnaire, but not specific.
- Urine Legionella Ag and Pneumococcal Ag pending (not sensitive tests)
- Follow blood cx's.
- Agree with ceftriaxone and Azithromycin.
- Trend fever, wbc, O2 status
#Conditions known prior to admission:
Hypertension
Suspected sleep apnea
Class III obesity, BMI 48
Sinusitis
Original Note:
Consultation
-
Date/Time Consultation Requested: 05-05-24
Date/Time Consultation Performed: 05-05-24
Requesting Provider: Dr. Naylor
Performing Provider: Dr. Jewell
Reason for Consultation: Pneumonia
Chief Complaint / Past History
Chief Complaint
Cough; shortness of breath; fever
History of Present Illness
Tristan Vigil, age 44, came to the hospital on 05-04-24 with 5 days of cough, shortness of breath, fever, chills and fatigue. He also developed diarrhea and abdominal pain 3 days prior to his presentation after eating pork shops and sushi; symptoms
have persisted. He was tachycardic, hypotensive and hypoxic requiring high FiO2 on presentation. Blood work showed leukocytosis and acute kidney injury. Imaging was notable for extensive severe bilateral multifocal pneumonia. He was admitted to the
ICU. He was started on ceftriaxone and azithromycin for community-acquired pneumonia, with microbial work-up pending. He denies prior hospitalizations or other recent or recurrent illnesses. His daughter was recently sick with a cold but denies any
other known sick contacts. He has not been on any recent trips besides [place] and [place] earlier in the summer.
Past History
Past Medical History: Other (hypertension; suspected sleep apnea; morbid obesity)
Past Surgical History: None
Allergy History:
No Known Allergies Allergy (Unverified 05/04/24 08:09)
Social History
Tobacco: Smoker (2 cigs every Friday evening)
Alcohol: Occasional
Drug: None
Personal:
Living: With Family
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
Family History
Family History: Not Pertinent
Review of Systems
Review of Systems
General: Fever and Chills
HEENT: Sinus Problems
Cardiovascular: Negative Chest Pain or Palpitations
Respiratory: Dyspnea, Cough, Hemoptysis and Sputum Production
Gasteroenterology: Nausea and Other (diarrhea/loose stools); Negative Vomiting
Genital / Urological: Negative Dysuria
Endocrine: Fatigue; Negative Weakness
Musculoskeletal: Negative Arthralgias or Myalgias
Skin / Hair / Nails: Negative Rash
Neurological: Headache; Negative Dizziness or Seizures
Psychological: Negative Sleep Changes
Vital Signs
Temp Pulse Resp BP Pulse Ox
102 F H 104 17 105/90 99
05/05/24 07:45 05/05/24 15:30 05/05/24 15:30 05/05/24 15:30 05/05/24 15:30
Physical Exam
Physical Exam
Constitutional: No Acute Distress and Comfortable
Head: Normocephalic
Eyes: Pupils Equal, Pupils Round and Sclera Anicteric
Pharynx: Benign
Cardiovascular: Regular Rate and S1/S2
Pulmonary: Rales (diffuse bilateral), Coarse and Non Labored
Gastrointestinal: Soft, Non Tender and Non Distended
Extremities: Negative Edema, Clubbing or Cyanosis
Wound: None
Neurological: Awake, Alert, Oriented and No Motor Deficits
Psychological: Calm
Lab / Diagnostic Study Results
05/05/24 03:12
05/05/24 03:12
Abs Immat Gran (auto) 0.1 10^3/uL (0-0.05) H 05/04/24 08:17
Absolute Neuts (auto) 11.6 10^3/uL (1.4-6.5) H 05/04/24 08:17
Absolute Lymphs (auto) 1.6 10^3/uL (1.2-3.4) 05/04/24 08:17
Absolute Monos (auto) 1.8 10^3/uL (0.1-0.6) H 05/04/24 08:17
Absolute Basos (auto) 0.0 10^3/uL (0-0.2) 05/04/24 08:17
Immature Gran % 0.6 % (0-0.5) H 05/04/24 08:17
Neutrophils % 76.4 % (42.2-75.2) H 05/04/24 08:17
Lymphocytes % 10.7 % (20.5-51.1) L 05/04/24 08:17
Monocytes % 11.6 % (1.7-9.3) H 05/04/24 08:17
Eosinophils % 0.5 % (0-6) 05/04/24 08:17
Basophils % 0.2 % (0-2) 05/04/24 08:17
ESR 34 mm/hour (0-20) H 05/05/24 11:17
Lactic Acid 1.8 mmol/L (0.7-2.0) 05/04/24 15:45
C-Reactive Protein > 270.00 mg/L (0.0-10.00) H 05/05/24 11:17
Ur Squamous Epith Cells 0-2 /LPF (Few) 05/05/24 12:04
Microbiology Results
Micro:
05/04/24 15:45 Blood Culture - Preliminary
Blood/Venous No Growth in 24 hours- Final report to follow
05/05/24 12:04 Salmonella/Shigella Culture - Pending
Feces/Stool Campylobacter Culture - Pending
Shiga Toxin Test - Pending
05/05/24 08:25 MRSA Screen - Pending
Nose
05/04/24 18:21 Respiratory Culture - Pending
Sputum Gram Stain - Pending
05/04/24 18:21 Legionella Urinary Antigen - Pending
Urine Streptococcus pneumoniae Antigen (M - Pending
05/04/24 08:17 Influenza Types A & B (UZIEL) - Final
Nasal Swab Negative for Influenza A & B, NAAT
Negative results must be combined with clinical observations
and patient history.
Nucleic Acid Amplification test (NAAT)performed on the
[employer] platform.
Assessment / Plan
Community-acquired pneumonia
Severe sepsis secondary to above
Acute hypoxic respiratory failure
- T-max of 104 F on 05-05-24; on high flow NS; IV fluids.
- Leukocytosis stable; blood culture with no growth so far; negative for COVID/flu.
- Legionella and streptococcus pneumoniae antigen, sputum culture pending.
- Continue ceftriaxone and azithromycin.
- Continue supportive care.
Acute diarrhea
- Salmonella/Shigella, Campylobacter and Shiga toxin pending.
- IV fluids.
Acute kidney injury, improving
Conditions known prior to admission:
Hypertension
Suspected sleep apnea
Morbid obesity
[2024-05-05] MEDS: OCEAN, SALINE MIST NASAL ×2 (16:35→20:53)
[2024-05-05] MEDS: SOLU-CORTEF 50 MG IV (17:12)
--- NOTE | 2024-05-05 17:49 | PTCARENOTE ---
pt continues oob in chair , weaning down on HFNC 70% and 55L , his sats are 97-98% , he continues to have hemoptysis
--- NOTE | 2024-05-05 20:00 | PTCARENOTE ---
Resumed care of pt this evening. Received pt on high flow O2, 70% 55L. Pt is A&Ox3, can move all 4 extremities, and can make needs known. Pt is ST on tele monitor and has b/l palpable pedal pulses. Pt exhibiting frequent harsh productive cough,
hemoptysis. Pt satting at 96% pulse ox. Pt's abdomen is round obese and has +BS. Pt having loose, watery brown stools. Skin is C/D/I. Pt sitting in chair.
--- NOTE | 2024-05-05 22:00 | PTCARENOTE ---
Pt transferred to bed. Pt tolerated ambulation while on high flow O2, maintaining sats in the mid 90s.
[2024-05-06] VITALS (17 sets, daily range): BP systolic 97–157; BP diastolic 64–95; BMI 47.0
[2024-05-06] MEDS: SOLU-CORTEF 50 MG IV ×5 (01:19→23:55)
[2024-05-06] MEDS: XOPENEX 1.25 MG INHALANT SOLUTION INH ×4 (01:35→19:06)
[2024-05-06] MEDS: ANESTHETIC LOZENGE 1 LOZENGE PO ×3 (02:04→23:55)
--- NOTE | 2024-05-06 02:30 | PTCARENOTE ---
Pt resting comfortably at this time. No change from previous assessment.
[2024-05-06] MEDS: TYLENOL 650 MG PO (03:18)
[2024-05-06 06:31] LABS: % Basophils 0.2 % (0-2); % Eosinophils 0.1 % (0-6); % Immature Granulocytes 0.8 % (0-0.5); % Lymphocytes 6.3 % (20.5-51.1); % Monocytes 5.8 % (1.7-9.3); % Neutrophils 86.8 % (42.2-75.2); Absolute Immature Granulocytes 0.1 10^3/uL (0-0.05); Absolute Monocytes 0.9 10^3/uL (0.1-0.6); Absolute Neutrophils 13.8 10^3/uL (1.4-6.5); Hematocrit 31.8 % (39.0-52.0); Hemoglobin 11.2 g/dL (13.0-18.0); Mean Corp Hgb Conc. 35.2 g/dL (33.0-37.0); Mean Corpuscular Hgb 29.5 pg (27.0-31.0); Mean Corpuscular Volume 83.7 fL (80.0-94.0); Mean Platelet Volume 9.2 fL (7.4-10.4); Nucleated Red Blood Cells % 0 % (-); Platelet Count 233 10^3/uL (130-400); Red Cell Dist. Width 12.8 % (11.5-14.5); White Blood Cell Count 15.9 10^3/uL (4.8-10.8)
[2024-05-06 06:57] LABS: Blood Urea Nitrogen 17 mg/dl (9-20); Calcium 8.8 mg/dl (8.4-10.2); Carbon Dioxide 23 mmol/L (22-30); Chloride 102 mmol/L (98-107); Estimated Creatinine Clearance 123 ml/min; Glucose 152 mg/dl (70-99); Magnesium 2.5 mg/dl (1.6-2.3); Potassium 4.4 mmol/L (3.5-5.1); Sodium 139 mmol/L (135-145); eGFR > 60.00
[2024-05-06] MEDS: ZITHROMAX 500 MG PO (07:25)
[2024-05-06] MEDS: OCEAN, SALINE MIST 1 SPRAYS NASAL (07:25)
[2024-05-06] MEDS: MUCINEX 1200 MG PO ×2 (07:25→21:44)
[2024-05-06] MEDS: ATROVENT NEBULES 0.5 MG INH ×3 (07:29→19:06)
--- NOTE | 2024-05-06 07:35 | W.PN.INTV ---
Today's Communication / Plan
Recommendations
Wean FiO2
Increase activity
Mucolytic's
Monitor hemoptysis
Begin heparin subcu for DVT prophylaxis-every 12 hours today, if hemoptysis not increasing then increased to every 8 hours
Antibiotics
Follow-up cultures
Outpatient sleep apnea workup
Assessment
-
44-year-old morbidly obese male with history of untreated obstructive sleep apnea, hypertension who presented with abdominal pain, diarrhea, cough, shortness of breath, fevers noted to have multifocal pneumonia requiring high FiO2 transfer to ICU
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
Respiratory failure-acute hypoxemic due to multifocal pneumonia
Community-acquired pneumonia-multifocal
Hemoptysis
Severe sepsis
OSIEL
Leukocytosis
Mild muarvz-vpvxeraizi-cnesvsutzt 12.7
Mild hyponatremia
Metabolic acidosis
Hyperglycemia
Transaminitis-elevated AST
Conditions present prior to admission:
Hypertension.
Hyperlipidemia.
Untreated CLIF.
Morbid obesity
Plan
Patient's respiratory status and hemodynamics have improved
Supplemental oxygen as needed-currently on high flow-May be reduced to mid flow in the near future
Positional pnrcsjg-jwny-koxn down with right greater than left pneumonia or supine
Noninvasive ventilation if needed
Intubated mechanically ventilated if necessary
Incentive spirometry encouraged
Mucus clearing devices
Mucolytic's
Monitor hemoptysis-overall decreasing
Nebulizers if needed-currently not bronchospastic
Check cultures
Urine Legionella and streptococcal antigens-negative
Blood cultures pending
Sputum culture-many WBCs, mixed organisms
Stool cultures-no E. coli or sugar toxins detected, Salmonella and Campylobacter cultures pending
MRSA screen pending
Empiric antibiotics to cover community-acquired pneumonia-ceftriaxone 2 g every 24 hours in addition to azithromycin 500 mg daily
Infectious disease consultation obtained-correspondence reviewed
Monitor leukocytosis-currently 15.9
ESR elevated at 34 but not in vasculitis levels
Elevated CRP
According to a systemic review and meta-analysis of randomized control trials on the efficacy and safety of corticosteroids for the treatment of community-acquired pneumonia (Journal of critical care-2023) the patient would benefit from steroids
which has been shown to reduce the incidence of shock, need for mechanical ventilation, decreased length of hospital and ICU stay as well as decrease mortality. Hydrocortisone was the only steroid that decreased mortality according to the
meta-analysis.
Hydrocortisone 200 mg once for load 05/05/2024 followed by infusion 50 mg IV every 6 hours will begin.
Follow renal function
Nephrology evaluation if renal function worsens
Check urine analysis to look for hematuria, casts, etc.
Follow hemoglobin-currently 11.2
Transfuse if needed
Monitor blood sugar
Insulin supplementation as needed
DVT ngbxbgkpbka-tmledwzsbt-cny heparin every 12 hours and increased to every 8 hours tomorrow if hemoptysis does not increase
Nutrition
Early mobilization
Reviewed sleep apnea/sleep disordered breathing symptomatology, associations with untreated sleep apnea and treatment options-will recommend outpatient pulmonary and sleep disorders follow-up
Reports recurrent infections-May need additional asthma/hypogammaglobulinemia/etc. workup as an outpatient
Reviewed with during multidisciplinary rounds which she was included in
If remains hemodynamically stable and FiO2 requirements decreased then could be transferred to IMU-pulmonary will continue to follow
Critical care statement: A total of 45 minutes of critical care time was provided for this patient today. This includes management of unstable vital signs, evaluation of the patient at bedside, reviewing the patient's pertinent medical records
including radiographs, management of respiratory failure, pressor management if needed, microbiology, laboratory evaluations, and discussion with primary team, consultants, pharmacy, nutrition, physical therapy, case management, charge nurse,
critical care nursing, and respiratory therapy.
Diagnostic data:
Chest x-ray 05/04/2024-bilateral pneumonia right greater than left
CT abdomen and pelvis 05/04/2024-no significant abnormalities identified in the abdomen or pelvis, severe bilateral multifocal pneumonia in the partially visualized lung bases
CT chest 05/05/2024-no evidence for pulmonary embolism, extensive severe bilateral multifocal pneumonia
Subjective Dataa
Subjective Data
Date of Service:
Date of Service: May 06, 2024
Chief Complaint: Population Geneticist Follow Up, Pulmonary Follow Up and Pneumonia Follow Up
Subjective:
Overall improved, less FiO2 requirements, hemoptysis overall decreasing, no chest pain, slept well, no apneas while sleeping on side, no abdominal pain
Review of Systems
General: Other ( Per HPI)
Objective Data
Data Reviewed
Vital Signs / I&O / Oxygen:
Vital Signs
Temp Pulse Resp BP Pulse Ox
98 F 90 19 130/79 96
05/06/24 07:35 05/06/24 06:45 05/06/24 06:45 05/06/24 06:45 05/06/24 06:45
Intake and Output
05/05/24 05/06/24 05/07/24
06:59 06:59 06:59
Intake Total 1200 / 1200 1480 / 1480
Output Total 1000 / 1000 3240 / 3240
Balance 200 / 200 -1760 / -1760
SaO2 96
Nasal Cannula flow liters per 50
minute
Physical Exam
General: Respiratory Distress (n) and Comfortable
HEENT: Normocephalic, Anicteric and Moist Mucous Membranes
Cardiovascular: Regular Rhythm
Respiratory: Crackles (Basilar), Rhonchi (n), Non-Labored Respirations, Accessory Resp Muscle Use (n) and Stridor (n)
GI: Soft, Non Distended and Non Tender
Neurology: Awake, Alert and No Motor Deficits
Skin: Warm, Good Color, Cyanosis (n), Jaundice (n) and Rash
Labs/Micro/Reports
Lab Data
05/06/24 06:24
05/06/24 06:24
Microbiology
05/04/24 18:21 Sputum Gram Stain - Preliminary
05/04/24 15:45 Blood/Venous Blood Culture - Preliminary
No Growth in 24 hours- Final report to follow
05/04/24 08:17 Nasal Swab Influenza Types A & B (UZIEL) - Final
Negative for Influenza A & B, NAAT
Negative results must be combined with clinical observations
and patient history.
Nucleic Acid Amplification test (NAAT)performed on the
[employer] platform.
--- NOTE | 2024-05-06 07:50 | W.PN.HOSP.TC ---
Today's Communication/Plan
-
see A/P
Assessment / Plan
Assessment / Plan
HPI: 44 yo male with PMH HTN presented with abdominal pain, cough, SOB, and fever. 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 He notes his daughter was sick with a cold recently so he thought he caught her
cold. 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 He describes the diarrhea as large-volume watery stools without blood, and the last time he vomited was the day
WATER QUALITY ANALYST. Within the last couple days he has also noticed a red tinge to the sputum he's been coughing up. He tried to control his symptoms with Dayquil, Nyquil and nasal lavage without relief. Due to persistent/worsening symptoms he presented to the
emergency department for evaluation. He denies any chronic lung conditions, and denies any prior history of pneumonia.
A/P:
# Severe Sepsis secondary to Community Acquired Pneumonia
CXR noted Bilateral pneumonia, right worse than left.
CT Chest: negative for PE, confirmed extensive severe bilateral multifocal pneumonia
CT AP: No significant abnormality identified
Continue Ceftriaxone and Azithromycin
Started steroid with hydrocortisone
Cont Duonebs with Levalbuterol
Follow Strep and Legionella antigen
Follow sputum culture
blood culture negative
Check MRSA screen
COVID/Flu negative
ID on board, Wire Mill Rover/Pulm on board
# Acute hypoxic respiratory failure
Placed on high flow NC with FIO2 100%, now down to 50%, cont to wean as tolerated
Pulm/ophthalmic medical technologist consulted
# OSIEL, resolved
SCr 1.5 on admission, today at 1.0
s/p IVF
# Essential Hypertension
resume WATER QUALITY ANALYST irbesartan with holding parameter
# Class III Obesity, Affects all aspects of care
# Obstructive Sleep Apnea
BMI 48
encourage prone position
DVT proph: SCDs
Code Status: Full Code
DW at bedside
DW RN
DW Wire Mill Rover
total time spent 51 min
Anticipated Discharge: > 48 hours
Subjective/Interval History
-
Date of Service: May 06, 2024
Objective Data
-
Labs:
Laboratory Results
05/06/24
06:24
WBC 15.9 H
Hgb 11.2 L
Hct 31.8 L
Plt Count 233
Sodium 139
Potassium 4.4
Chloride 102
Carbon Dioxide 23
BUN 17
Creatinine 1.0
Glucose 152 H
Calcium 8.8
Vital Signs:
Vital Signs
Temp Pulse Resp BP Pulse Ox
36.6 C 97 20 130/79 97
05/06/24 07:35 05/06/24 07:35 05/06/24 07:35 05/06/24 06:45 05/06/24 07:35
I&O
05/05/24 05/06/24 05/07/24
06:59 06:59 06:59
Intake Total 1200 / 1200 1480 / 1480
Output Total 1000 / 1000 3240 / 3240
Balance 200 / 200 -1760 / -1760
Review of Systems
-
Respiratory: Reports Cough and Trouble Breathing (improved)
Physical Exam
-
General: Well Developed, Well Nourished, Comfortable, Respiratory Distress, Conversant and Morbidly Obese
HEENT: Normocephalic, Atraumatic, Nose Appears Normal, Ears Appear Normal and Oxygen (high flow NC)
Respiratory: Crackles and Non Labored Respirations
Cardiac: Regular Rhythm and S1/S2
GI: Soft, Nontender, Nondistended and Normal Bowel Sounds
Skin: Warm and Dry
Neuro: Awake, Alert and Oriented
Psych: Calm and Intact Judgement/Insight
Data Reviewed
-
Diagnostic Radiology: Image personally visualized and interpreted and Report Reviewed by me
CT Scan: Report Reviewed by me
Labs: Labs Reviewed by me
--- NOTE | 2024-05-06 08:29 | PTCARENOTE ---
Assumed care of pt. Received pt on high flow O2, titrated to 50% 50L. Pt is A&Ox3, can move all 4 extremities, and can make needs known. Pt is ST on tele monitor and has b/l palpable pedal pulses. Pt exhibiting frequent harsh productive cough,
sputum pink, small-moderate amount. SpO2 94%. Pt's abdomen is round obese and has +BS. Pt having soft brown stools. Skin is C/D/I. Standby asst to chair. Plan of care discussed.
[2024-05-06] MEDS: AVAPRO 300 MG PO (08:59)
[2024-05-06] MEDS: ROCEPHIN 2000 MG IV (09:55)
[2024-05-06] MEDS: STERILE WATER FOR INJECTION 20 ML IV (09:55)
[2024-05-06] MEDS: HEPARIN 5000 UNITS SC ×2 (11:13→21:43)
[2024-05-06] MEDS: VISBIOME 2 CAP PO (11:31)
--- NOTE | 2024-05-06 11:39 | W.PN.ID1 ---
Addendum entered and electronically signed by Alessandra Jewell MD 05/06/24 12:51:
I saw and evaluated the patient. I reviewed the resident�s note and agree with findings and plan as documented in the resident�s note.
# Severe multifocal community-acquired PNA
# Acute hypoxemic respiratory failure improving
# Improving Severe sepsis, fever (resolved), leukocytosis
# Diarrhea
- ? Legionella - hyponatremia and diarrhea can be associated with Legionnaire, but not specific.
- Urine Legionella Ag and Pneumococcal Ag negative (not sensitive tests)
-Sputum cx usual resp helen
- blood cx's neg to date.
- Continue ceftriaxone and Azithromycin (d3)
- Follow O2 status
#Conditions known prior to admission:
Hypertension
Suspected sleep apnea
Class III obesity, BMI 48
Sinusitis
Original Note:
Date of Service
Date of Service: May 06, 2024
Today's Communication
* Continue azithromycin and ceftriaxone.
Assessment / Plan
Community-acquired pneumonia
Severe sepsis secondary to above
Acute hypoxic respiratory failure
- T-max of 104 F on 05-05-24; on high flow NS; IV fluids.
- Leukocytosis down-trending; blood culture Legionella and streptococcus pneumoniae antigen negative; negative for COVID/flu.
- Sputum culture pending.
- Continue ceftriaxone and azithromycin (day 3).
- Continue supportive care.
Acute diarrhea
- Salmonella/Shigella and Campylobacter pending; Shiga toxin negative.
- IV fluids.
Acute kidney injury, improving
Conditions known prior to admission:
Hypertension
Suspected sleep apnea
Morbid obesity
Chief Complaint
-: Pneumonia
Subjective / Review of Systems
Review of Systems: No Fever, No Chills, No Headache, Cough, Sputum Production, No Chest Pain, No Palpitations, No Abdominal Pain, No Nausea, Diarrhea and No Diarrhea
Vital Signs / Physical Exam
Vital Signs
Vital Signs
Temp Pulse Resp BP Pulse Ox
98 F 110 18 142/87 92
05/06/24 07:35 05/06/24 10:15 05/06/24 10:15 05/06/24 10:00 05/06/24 10:15
Physical Exam
Constitutional: No Acute Distress and Comfortable
Head: Normocephalic
Eyes: Pupils Equal, Pupils Round and Sclera Anicteric
Oropharyngeal: Benign
Cardiovascular: Regular Rate and S1/S2
Pulmonary: Rales, Coarse and Non Labored
Gastrointestinal: Soft, Non Tender and Non Distended
Extremities: Negative Edema, Clubbing or Cyanosis
Wound: None
Neurological: Awake, Alert, Oriented and No Motor Deficits
Psychological: Calm
Objective Data
Lab Data
Lab Results
05/06/24 06:24
05/06/24 06:24
ESR 34 mm/hour (0-20) H 05/05/24 11:17
Estimated Creat Clear 123 ml/min 05/06/24 06:24
Lactic Acid 1.8 mmol/L (0.7-2.0) 05/04/24 15:45
Total Bilirubin 0.7 mg/dl (0.2-1.3) 05/04/24 08:17
AST 66 U/L (17-59) H 05/04/24 08:17
ALT 47 U/L (0-50) 05/04/24 08:17
Alkaline Phosphatase 65 U/L (38-126) 05/04/24 08:17
C-Reactive Protein > 270.00 mg/L (0.0-10.00) H 05/05/24 11:17
Most recent labs reviewed.
Micro Results:
05/05/24 12:04 Salmonella/Shigella Culture - Pending
Feces/Stool Campylobacter Culture - Pending
Shiga Toxin Test - Final
No E. coli Shiga Toxin 1 or 2 detected.
05/05/24 12:04 Legionella Urinary Antigen - Final
Urine Negative for Legionella pneumophila Serogroup 1 antigen.
A negative result does not rule out the possiblity of
Legionella infection due to other serogroups or species of
Legionella. Clinical correlation is recommended.
Streptococcus pneumoniae Antigen (M - Final
Negative for Streptococcus pneumoniae antigen.
A negative result does not exclude infection with
Streptococcus pneumoniae. Clinical correlation is
recommended.
05/04/24 18:21 Respiratory Culture - Pending
Sputum Gram Stain - Preliminary
05/04/24 15:45 Blood Culture - Preliminary
Blood/Venous No Growth in 24 hours- Final report to follow
05/05/24 08:25 MRSA Screen - Pending
Nose
05/04/24 08:17 Influenza Types A & B (UZIEL) - Final
Nasal Swab Negative for Influenza A & B, NAAT
Negative results must be combined with clinical observations
and patient history.
Nucleic Acid Amplification test (NAAT)performed on the
[id number] platform.
--- NOTE | 2024-05-06 16:28 | PTCARENOTE ---
Pt up in chair, ambulating to BR without issue. On 4L NC, SpO2 92-96%.
[2024-05-06] MEDS: OCEAN, SALINE MIST NASAL (21:44)
[2024-05-06] MEDS: MELATONIN 10 MG PO (23:55)
[2024-05-07] VITALS (12 sets, daily range): BP systolic 109–167; BP diastolic 70–109; BMI 47.6
--- NOTE | 2024-05-07 | PTCARENOTE ---
Received patient from REGIONAL SALES REPRESENTATIVE via wheelchair, patient ambulated self to bed without difficulty. On 4L NC, sat 92-93%. Patient requesting melatonin and states takes 12mg at home, VISUALLY IMPAIRED TEACHER notified and x1 PO 10mg Melatonin ordered, see MAR for
administration. Oriented to new room, call parsons within reach, VSS, care ongoing.
--- NOTE | 2024-05-07 01:00 | TRANSFER ---
Pt transferred to IMU bed [id number] via wheelchair w/ personal belongings. Report given to RAFAT Lee.
[2024-05-07 05:15] LABS: % Basophils 0.3 % (0-2); % Immature Granulocytes 1.7 % (0-0.5); % Monocytes 5.4 % (1.7-9.3); % Neutrophils 84.6 % (42.2-75.2); Absolute Basophils 0.1 10^3/uL (0-0.2); Absolute Immature Granulocytes 0.3 10^3/uL (0-0.05); Absolute Lymphocytes 1.4 10^3/uL (1.2-3.4); Absolute Monocytes 0.9 10^3/uL (0.1-0.6); Absolute Neutrophils 14.2 10^3/uL (1.4-6.5); Hematocrit 35.6 % (39.0-52.0); Hemoglobin 12.5 g/dL (13.0-18.0); Mean Corp Hgb Conc. 35.1 g/dL (33.0-37.0); Mean Corpuscular Volume 82.6 fL (80.0-94.0); Mean Platelet Volume 9.7 fL (7.4-10.4); Nucleated Red Blood Cells % 0 % (-); Platelet Count 290 10^3/uL (130-400); Red Blood Cell Count 4.31 10^6/uL (4.70-6.10); Red Cell Dist. Width 12.8 % (11.5-14.5); White Blood Cell Count 16.8 10^3/uL (4.8-10.8)
[2024-05-07] MEDS: SOLU-CORTEF 50 MG IV ×3 (05:19→17:19)
[2024-05-07 05:20] LABS: Blood Urea Nitrogen 22 mg/dl (9-20); Calcium 9.3 mg/dl (8.4-10.2); Carbon Dioxide 24 mmol/L (22-30); Chloride 100 mmol/L (98-107); Estimated Creatinine Clearance 112 ml/min; Glucose 142 mg/dl (70-99); Magnesium 2.3 mg/dl (1.6-2.3); Potassium 4.2 mmol/L (3.5-5.1); Sodium 140 mmol/L (135-145); eGFR > 60.00
[2024-05-07] MEDS: ATROVENT NEBULES 0.5 MG INH ×3 (06:12→20:09)
[2024-05-07] MEDS: XOPENEX 1.25 MG INHALANT SOLUTION INH ×3 (06:12→20:09)
[2024-05-07] MEDS: ANESTHETIC LOZENGE 1 LOZENGE PO ×2 (06:57→21:50)
--- NOTE | 2024-05-07 08:09 | W.PN.HOSP.TC ---
Addendum entered and electronically signed by Susana Treadwell MD 05/07/24 08:23:
d dimer elevated, and although CT PE was negative for PE, should still check BL LE US to r/o DVT.
BL LE US ordered
Original Note:
Today's Communication/Plan
-
see A/P
Assessment / Plan
Assessment / Plan
HPI: 44 yo male with PMH HTN presented with abdominal pain, cough, SOB, and fever. 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 He notes his daughter was sick with a cold recently so he thought he caught her
cold. 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 He describes the diarrhea as large-volume watery stools without blood, and the last time he vomited was the day
COMMUNICATIONS PROJECT MANAGER. Within the last couple days he has also noticed a red tinge to the sputum he's been coughing up. He tried to control his symptoms with Dayquil, Nyquil and nasal lavage without relief. Due to persistent/worsening symptoms he presented to the
emergency department for evaluation. He denies any chronic lung conditions, and denies any prior history of pneumonia.
A/P:
# Severe Sepsis secondary to Community Acquired Pneumonia
CXR noted Bilateral pneumonia, right worse than left.
CT Chest: negative for PE, confirmed extensive severe bilateral multifocal pneumonia
CT AP: No significant abnormality identified
Continue Ceftriaxone and Azithromycin with Probiotic
Started steroid hydrocortisone now 50 Q8
Start Vest therapy
Cont Duonebs with Levalbuterol
Strep and Legionella antigens are negative, MRSA screen negative, sputum culture usual respiratory helen, blood culture negative
COVID/Flu negative
ID on board, Customer Service Representative Teacher/Pulm on board
# Acute hypoxic respiratory failure, improving
high flow NC at FIO2 100% -> 4L NC
Pulm/hollock maker consulted
# OSIEL, resolved
SCr 1.5 on admission, today at 1.1
# Essential Hypertension
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
# Class III Obesity, Affects all aspects of care
# Obstructive Sleep Apnea
BMI 48
encourage prone position
DVT proph: HSQ
Code Status: Full Code
DW RN
Anticipated Discharge: 24 - 48 hours
Subjective/Interval History
-
Date of Service: May 07, 2024
Objective Data
-
Labs:
Laboratory Results
05/07/24
04:44
WBC 16.8 H
Hgb 12.5 L
Hct 35.6 L
Plt Count 290 D
Sodium 140
Potassium 4.2
Chloride 100
Carbon Dioxide 24
BUN 22 H
Creatinine 1.1
Glucose 142 H
Calcium 9.3
Vital Signs:
Vital Signs
Temp Pulse Resp BP Pulse Ox
36.8 C 90 16 152/90 96
05/07/24 05:04 05/07/24 06:15 05/07/24 06:15 05/07/24 06:00 05/07/24 06:15
I&O
05/06/24 05/07/24 05/08/24
06:59 06:59 06:59
Intake Total 1480 / 1480 1979 / 1979
Output Total 3240 / 3240 1850 / 1850
Balance -1760 / -1760 130 / 130
Review of Systems
-
Respiratory: Reports Cough (improved) and Trouble Breathing (improved)
Physical Exam
-
General: Well Developed, Well Nourished, Comfortable, Respiratory Distress, Conversant and Morbidly Obese
HEENT: Normocephalic, Atraumatic, Nose Appears Normal, Ears Appear Normal and Oxygen (4L NC)
Respiratory: Crackles and Non Labored Respirations
Cardiac: Regular Rhythm and S1/S2
GI: Soft, Nontender, Nondistended and Normal Bowel Sounds
Skin: Warm and Dry
Neuro: Awake, Alert and Oriented
Psych: Calm and Intact Judgement/Insight
Data Reviewed
-
Diagnostic Radiology: Image personally visualized and interpreted and Report Reviewed by me
CT Scan: Report Reviewed by me
Labs: Labs Reviewed by me
[2024-05-07] MEDS: MUCINEX 1200 MG PO (09:20)
[2024-05-07] MEDS: VISBIOME 2 CAP PO (09:20)
[2024-05-07] MEDS: ZITHROMAX 500 MG PO (09:20)
[2024-05-07] MEDS: HEPARIN 5000 UNITS SC ×2 (09:21→17:19)
[2024-05-07] MEDS: OCEAN, SALINE MIST 50 SPRAYS NASAL (09:22)
[2024-05-07] MEDS: ROCEPHIN 2000 MG IV (09:23)
[2024-05-07] MEDS: STERILE WATER FOR INJECTION 20 ML IV (09:23)
--- NOTE | 2024-05-07 09:41 | W.PN.PUL3 ---
Today's Communication / Plan
-
Continue with antibiotics
ID on board and recs appreciated
Up OOB as tolerated
Maintain SpO2 >90-94%
Nebs with xopenex + atrovent
Steroid wean
Will need repeat imaging with CT chest without contrast in about 4 to 6 weeks to follow-up pneumonia resolution
Outpatient follow-up will be arranged with our office
Pulmonary service will continue to follow along
Assessment
-
44-year-old morbidly obese male with history of untreated obstructive sleep apnea, hypertension who presented with abdominal pain, diarrhea, cough, shortness of breath, fevers noted to have multifocal pneumonia requiring high FiO2 transfer to ICU
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
Impressiom:
Respiratory failure-acute hypoxemic due to multifocal pneumonia
Community-acquired pneumonia-multifocal
Hemoptysis
Sepsis without shock due to multifocal PNA/CAP
OSIEL - resolved
Leukocytosis - at this point likely steroid induced
Mild nbscfy-suojplanom-mefhwupotu 12.7
Mild hyponatremia - resolved
Metabolic acidosis
Hyperglycemia
Transaminitis-elevated AST
Conditions present prior to admission:
Hypertension.
Hyperlipidemia.
Untreated CLIF.
Morbid obesity
Plan
Patient's respiratory status and hemodynamics have markedly improved
Supplemental oxygen as needed-currently on 3L/min nasal cannula s/p high flow
Positional ghqaysg-oafj-ackp down given PNA is worse on the right
Noninvasive ventilation if needed
Incentive spirometry encouraged
Mucus clearing devices - currently on vest therapy and he feels like it is helping
Mucolytics
Monitor hemoptysis-overall decreasing and is stable; trend Hb
Nebulizers with xopenex + atrovent; prn doses for breakthrough symptoms
Urine Legionella and streptococcal antigens-negative
Blood cultures pending
Sputum culture-many WBCs, few mixed organisms
Stool cultures-no E. coli or sugar toxins detected, Salmonella and Campylobacter cultures pending
MRSA screen negative
Empiric antibiotics to cover community-acquired pneumonia-ceftriaxone 2 g every 24 hours in addition to azithromycin 500 mg daily
Infectious disease consultation obtained-correspondence reviewed
Monitor leukocytosis-currently 16.8
ESR elevated at 34 but not in vasculitis levels
Elevated CRP (>270)
According to a systemic review and meta-analysis of randomized control trials on the efficacy and safety of corticosteroids for the treatment of community-acquired pneumonia (Journal of critical care-2023) the patient would benefit from steroids
which has been shown to reduce the incidence of shock, need for mechanical ventilation, decreased length of hospital and ICU stay as well as decrease mortality. Hydrocortisone was the only steroid that decreased mortality according to the
meta-analysis.
Hydrocortisone 200 mg once for load 05/05/2024 followed by infusion 50 mg IV every 6 hours will begin --> start weaning tomorrow to 50mg IV q8hr and then wean from there
Follow renal function
Nephrology evaluation if renal function worsens
No hematuria seen on UA
Follow hemoglobin-currently 12.5
Transfuse if needed to keep Hb>7g/dL, plt>50k
Monitor blood sugar with goal >100 and <180mg/dL
Insulin supplementation as needed
DVT prophylaxis-HSQ
Early mobilization
Reviewed sleep apnea/sleep disordered breathing symptomatology, associations with untreated sleep apnea and treatment options-will recommend outpatient pulmonary and sleep disorders follow-up
He says that he is intolerant to CPAP - not willing to use during current hospitalization
Reports recurrent infections-May need additional asthma/hypogammaglobulinemia/etc. workup as an outpatient
Pulmonary service will continue to follow along. Outpatient follow up will be arranged as well.
Diagnostic data:
Chest x-ray 05/04/2024-bilateral pneumonia right greater than left
CT abdomen and pelvis 05/04/2024-no significant abnormalities identified in the abdomen or pelvis, severe bilateral multifocal pneumonia in the partially visualized lung bases
CT chest 05/05/2024-no evidence for pulmonary embolism, extensive severe bilateral multifocal pneumonia
CXR 05/07/2024:
Bilateral patchy parenchymal airspace opacities, highly suggestive of bilateral pneumonia.
Probably slight improvement in right lower lung parenchymal opacity comparing to service superintendent radiograph from CT scan of October 05, 2023.
Total time spent today was 55 minutes for this encounter. Time includes reviewing laboratory test/imaging results, reviewing pertinent medical records, obtaining and reviewing medical history, performing an appropriate exam, ordering medications,
tests and procedures. Time also includes documentation of this encounter, coordinating patient care and communicating with other healthcare professionals. Total time does not include separately billed tests performed on this date of service.
Subjective Data
-
Date of Service:
Date of Service: May 07, 2024
Chief Complaint: Pulmonary Follow Up
Subjective:
Seen and evaluated today. HR 108, BP 119/70, and saturating 95% on 3L/min. Not sleeping well and he is frustrated with the telemetry wires/leads on his chest, and his cough is bothersome at night. Still coughing up blood, he says up to half a cup
a day. His SOB has improved, but still happening throughout the day where it worsens, usually just before his steroid is due. He denies chest pain, AKINS, abd pain, N/V/f/c.
Review of Systems
General: Other (negative unless mentioned above)
Objective Data
Data Reviewed
Vital Signs / I&O / Oxygen:
Vital Signs
Temp Pulse Resp BP Pulse Ox
98.3 F 90 16 152/90 96
05/07/24 07:45 05/07/24 06:15 05/07/24 06:15 05/07/24 06:00 05/07/24 06:15
Intake and Output
05/06/24 05/07/24 05/08/24
06:59 06:59 06:59
Intake Total 1480 / 1480 1979 / 1979
Output Total 3240 / 3240 1850 / 1850
Balance -1760 / -1760 130 / 130
SaO2 96
Nasal Cannula flow liters per 4
minute
Physical Exam
General: Respiratory Distress (negative), Comfortable and Chills (negative)
HEENT: Normocephalic and Anicteric
Cardiovascular: S1-S2, Peripheral Edema (trace EFRAIN b/l) and Other (tachycardic)
Respiratory: Wheeze (negative), Crackles (Posterior RUL), Rhonchi (negative) and Non-Labored Respirations
GI: Soft, Distended (abdominal obesity), Non Tender and Normal Bowel Sounds
Neurology: AO x 3 and Tremors (negative)
Skin: Warm, Dry, Cyanosis (negative) and Jaundice (negative)
Labs/Micro/Reports
Lab Data
05/07/24 04:44
05/07/24 04:44
Microbiology
05/05/24 12:04 Feces/Stool Salmonella/Shigella Culture - Final
No Salmonella, Shigella, Aeromonas or Plesiomonas species
isolated.
05/05/24 12:04 Feces/Stool Campylobacter Culture - Final
No Campylobacter species isolated.
05/05/24 12:04 Feces/Stool Shiga Toxin Test - Final
No E. coli Shiga Toxin 1 or 2 detected.
05/04/24 15:45 Blood/Venous Blood Culture - Preliminary
No Growth in 48 hours- Final report to follow
05/05/24 08:25 Nose MRSA Screen - Final
No Methicillin Resistant Staphylococcus aureus isolated.
05/04/24 18:21 Sputum Respiratory Culture - Preliminary
Usual Respiratory Dotty
05/04/24 18:21 Sputum Gram Stain - Preliminary
05/05/24 12:04 Urine Legionella Urinary Antigen - Final
Negative for Legionella pneumophila Serogroup 1 antigen.
A negative result does not rule out the possiblity of
Legionella infection due to other serogroups or species of
Legionella. Clinical correlation is recommended.
05/05/24 12:04 Urine Streptococcus pneumoniae Antigen (M - Final
Negative for Streptococcus pneumoniae antigen.
A negative result does not exclude infection with
Streptococcus pneumoniae. Clinical correlation is
recommended.
05/04/24 08:17 Nasal Swab Influenza Types A & B (UZIEL) - Final
Negative for Influenza A & B, NAAT
Negative results must be combined with clinical observations
and patient history.
Nucleic Acid Amplification test (NAAT)performed on the
[employer] platform.
[2024-05-07] MEDS: AVAPRO 300 MG PO (12:13)
--- NOTE | 2024-05-07 13:23 | W.PN.ID1 ---
Date of Service
Date of Service: May 07, 2024
Today's Communication
Continue ceftriaxone, azithromycin
Assessment / Plan
# Severe multifocal community-acquired PNA, improving
# Acute hypoxemic respiratory failure improving, now on 4L NC
# s/p Severe sepsis
# Leukocytosis - on steroid
# Diarrhea - stool cx neg
- Urine Legionella Ag and Pneumococcal Ag negative (not sensitive tests)
-Sputum cx usual resp helen
- blood cx's neg to date.
- Continue ceftriaxone and Azithromycin (d4)
- Wean O2
#Conditions known prior to admission:
Hypertension
Suspected sleep apnea
Class III obesity, BMI 48
Sinusitis
Chief Complaint
-: Pneumonia
Subjective / Review of Systems
Continues to feel improved.
Vital Signs / Physical Exam
Vital Signs
Vital Signs
Temp Pulse Resp BP Pulse Ox
98.3 F 90 16 152/90 96
05/07/24 07:45 05/07/24 06:15 05/07/24 06:15 05/07/24 06:00 05/07/24 06:15
Physical Exam
Constitutional: No Acute Distress and Comfortable
Cardiovascular: Regular Rate and S1/S2
Pulmonary: Clear
Gastrointestinal: Soft, Non Tender, Non Distended and Normal Bowel Sounds
Extremities: Negative Edema
Neurological: AO x 3
Objective Data
Lab Data
Lab Results
05/07/24 04:44
05/07/24 04:44
ESR 34 mm/hour (0-20) H 05/05/24 11:17
Estimated Creat Clear 112 ml/min 05/07/24 04:44
Lactic Acid 1.8 mmol/L (0.7-2.0) 05/04/24 15:45
Total Bilirubin 0.7 mg/dl (0.2-1.3) 05/04/24 08:17
AST 66 U/L (17-59) H 05/04/24 08:17
ALT 47 U/L (0-50) 05/04/24 08:17
Alkaline Phosphatase 65 U/L (38-126) 05/04/24 08:17
C-Reactive Protein > 270.00 mg/L (0.0-10.00) H 05/05/24 11:17
Most recent labs reviewed.
Micro Results:
05/04/24 18:21 Respiratory Culture - Final
Sputum Usual Respiratory Helen
Gram Stain - Final
05/05/24 12:04 Salmonella/Shigella Culture - Final
Feces/Stool No Salmonella, Shigella, Aeromonas or Plesiomonas species
isolated.
Campylobacter Culture - Final
No Campylobacter species isolated.
Shiga Toxin Test - Final
No E. coli Shiga Toxin 1 or 2 detected.
05/04/24 15:45 Blood Culture - Preliminary
Blood/Venous No Growth in 48 hours- Final report to follow
05/05/24 08:25 MRSA Screen - Final
Nose No Methicillin Resistant Staphylococcus aureus isolated.
05/05/24 12:04 Legionella Urinary Antigen - Final
Urine Negative for Legionella pneumophila Serogroup 1 antigen.
A negative result does not rule out the possiblity of
Legionella infection due to other serogroups or species of
Legionella. Clinical correlation is recommended.
Streptococcus pneumoniae Antigen (M - Final
Negative for Streptococcus pneumoniae antigen.
A negative result does not exclude infection with
Streptococcus pneumoniae. Clinical correlation is
recommended.
05/04/24 08:17 Influenza Types A & B (UZIEL) - Final
Nasal Swab Negative for Influenza A & B, NAAT
Negative results must be combined with clinical observations
and patient history.
Nucleic Acid Amplification test (NAAT)performed on the
[employer] platform.
--- NOTE | 2024-05-07 16:09 | PTCARENOTE ---
Patient weaned down to 3L o2. Spo2 92-94%. Patient SOB on exertion. Lungs coarse with scattered rhonci, intermittent expiratory wheezing. Vest therapy started today. Patient with harsh productive cough bringing up blood tinged/castano sputum.
Patient prefers to spit into towels. Using bathroom independently. Steady on his feet. VS stable.
--- NOTE | 2024-05-07 16:25 | CM ---
Patient with Hx obesity with Dx Sepsis, Community Acquired Pneumonia, Acute hypoxic respiratory failure. O2 3L. Receiving IV Abx, IV Steroids.
Patient off unit for CXR.
Met with patient's Clarissa;
the patient resides with his in a 2 story house with 1 SAI.
The patient has been independent in ADLs and ambulation.
DME - pulse oximeter
No prior VN.
PCP - Yas Altamirano
Pharmacy - [facility] Brian Green, Matthew
No CM d/c needs identified.
Plan home.
[2024-05-07] MEDS: OCEAN, SALINE MIST 2 SPRAYS NASAL (19:52)
[2024-05-07] MEDS: MUCINEX 600 MG PO (19:53)
--- NOTE | 2024-05-07 20:30 | PTCARENOTE ---
Patient showered, at bedside to assist. Pt reports feeling a little better and his breathing is 'ok'. 2L NC in place, Sp02 93-99%. Encouraged deep breathing. Pt is producing moderate to large amount of sputum and spitting into pillow cases. He
states the tissues are too small.
[2024-05-07] MEDS: MELATONIN 10 MG PO (21:48)
[2024-05-07] MEDS: ROBITUSSIN AC 10 ML PO (21:49)
[2024-05-08] VITALS (9 sets, daily range): BP systolic 119–164; BP diastolic 78–105; PULSE 95; O2SAT 95; BMI 47.1
[2024-05-08] MEDS: SOLU-CORTEF 50 MG IV ×4 (00:25→23:38)
[2024-05-08] MEDS: HEPARIN 5000 UNITS SC ×4 (00:25→23:37)
[2024-05-08 05:12] LABS: % Basophils 0.8 % (0-2); % Eosinophils 0.2 % (0-6); % Immature Granulocytes 7.4 % (0-0.5); % Lymphocytes 12.5 % (20.5-51.1); % Monocytes 6.8 % (1.7-9.3); % Neutrophils 72.3 % (42.2-75.2); Absolute Basophils 0.1 10^3/uL (0-0.2); Absolute Lymphocytes 1.7 10^3/uL (1.2-3.4); Absolute Monocytes 0.9 10^3/uL (0.1-0.6); Absolute Neutrophils 9.8 10^3/uL (1.4-6.5); Hematocrit 35.2 % (39.0-52.0); Hemoglobin 11.8 g/dL (13.0-18.0); Mean Corp Hgb Conc. 33.5 g/dL (33.0-37.0); Mean Corpuscular Hgb 29.6 pg (27.0-31.0); Mean Corpuscular Volume 88.4 fL (80.0-94.0); Mean Platelet Volume 9.2 fL (7.4-10.4); Nucleated Red Blood Cells % 0 % (-); Platelet Count 312 10^3/uL (130-400); Red Blood Cell Count 3.98 10^6/uL (4.70-6.10); Red Cell Dist. Width 12.9 % (11.5-14.5); White Blood Cell Count 13.6 10^3/uL (4.8-10.8)
[2024-05-08 05:15] LABS: Blood Urea Nitrogen 22 mg/dl (9-20); Calcium 9.4 mg/dl (8.4-10.2); Carbon Dioxide 29 mmol/L (22-30); Chloride 100 mmol/L (98-107); Estimated Creatinine Clearance 112 ml/min; Glucose 150 mg/dl (70-99); Magnesium 2.3 mg/dl (1.6-2.3); Potassium 4.9 mmol/L (3.5-5.1); Sodium 140 mmol/L (135-145); eGFR > 60.00
--- NOTE | 2024-05-08 05:49 | PTCARENOTE ---
Patient able to sleep, snoring intermittently. 2-3L NC in place, Sp02 93-98%. Pt reported Robitussin/codeine helped with cough. Voiding frequently in BR or via urinal. also drinks large amount of water/fluids. NSR/ST on tele. BPs have been more
accurate after obtaining a better fitting cuff.
[2024-05-08] MEDS: XOPENEX 1.25 MG INHALANT SOLUTION INH ×3 (07:25→19:59)
[2024-05-08] MEDS: ATROVENT NEBULES 0.5 MG INH ×3 (07:25→19:59)
--- NOTE | 2024-05-08 08:24 | W.PN.HOSP.TC ---
Today's Communication/Plan
-
see A/P
Assessment / Plan
Assessment / Plan
HPI: 44 yo male with PMH HTN presented with abdominal pain, cough, SOB, and fever. 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 He notes his daughter was sick with a cold recently so he thought he caught her
cold. 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 He describes the diarrhea as large-volume watery stools without blood, and the last time he vomited was the day
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 Within the last couple days he has also noticed a red tinge to the sputum he's been coughing up. He tried to control his symptoms with Dayquil, Nyquil and nasal lavage without relief. Due to persistent/worsening symptoms he presented to the
emergency department for evaluation. He denies any chronic lung conditions, and denies any prior history of pneumonia.
A/P:
# Severe Sepsis secondary to Community Acquired Pneumonia
CXR noted Bilateral pneumonia, right worse than left.
CT Chest: negative for PE, confirmed extensive severe bilateral multifocal pneumonia
CT AP: No significant abnormality identified
Continue Ceftriaxone and Azithromycin with Probiotic
Started steroid hydrocortisone, being tapered by pulm
Started Vest therapy
Cont Duonebs with Levalbuterol
Strep and Legionella antigens negative, MRSA screen negative, sputum culture usual respiratory helen, blood culture negative, COVID/Flu negative
ID on board, Radio Repairer/Pulm on board
# Acute hypoxic respiratory failure, improving
high flow NC at FIO2 100% -> 3.5L NC , cont to wean as tolerated
Pulm/safety engineer pressure vessels consulted
# OSIEL, resolved
SCr 1.5 on admission, today at 1.1
# Essential Hypertension
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
# Class III Obesity, Affects all aspects of care
# Obstructive Sleep Apnea
BMI 48
encourage prone position
DVT proph: HSQ
Code Status: Full Code
DW RN
DW at bedside
Anticipated Discharge: 24 - 48 hours
Subjective/Interval History
-
Date of Service: May 08, 2024
Objective Data
-
Labs:
Laboratory Results
05/08/24
04:18
WBC 13.6 H
Hgb 11.8 L
Hct 35.2 L
Plt Count 312
Sodium 140
Potassium 4.9
Chloride 100
Carbon Dioxide 29
BUN 22 H
Creatinine 1.1
Glucose 150 H
Calcium 9.4
Vital Signs:
Vital Signs
Temp Pulse Resp BP Pulse Ox
36.6 C 83 16 145/92 96
05/08/24 07:15 05/08/24 07:26 05/08/24 07:26 05/08/24 05:46 05/08/24 07:26
I&O
05/07/24 05/08/24 05/09/24
06:59 06:59 06:59
Intake Total 1979 / 1979 2430 / 2430
Output Total 1849 / 1849 2159 / 2159
Balance 130 / 130 270 / 270
Review of Systems
-
Respiratory: Reports Cough (improved) and Trouble Breathing (improved)
Physical Exam
-
General: Well Developed, Well Nourished, Comfortable, Respiratory Distress, Conversant and Morbidly Obese
HEENT: Normocephalic, Atraumatic, Nose Appears Normal, Ears Appear Normal and Oxygen (3.5L NC)
Respiratory: Wheezes (mild over bases), Crackles and Non Labored Respirations
Cardiac: Regular Rhythm and S1/S2
GI: Soft, Nontender, Nondistended and Normal Bowel Sounds
Skin: Warm and Dry
Neuro: Awake, Alert and Oriented
Psych: Calm and Intact Judgement/Insight
Data Reviewed
-
Diagnostic Radiology: Image personally visualized and interpreted and Report Reviewed by me
CT Scan: Report Reviewed by me
Labs: Labs Reviewed by me
[2024-05-08] MEDS: AVAPRO 300 MG PO (08:48)
[2024-05-08] MEDS: VISBIOME 2 CAP PO (08:48)
[2024-05-08] MEDS: ZITHROMAX 500 MG PO (08:48)
[2024-05-08] MEDS: MUCINEX 600 MG PO ×2 (08:48→19:48)
[2024-05-08] MEDS: OCEAN, SALINE MIST 2 SPRAYS NASAL (08:50)
--- NOTE | 2024-05-08 10:08 | W.PN.PUL.V3 ---
Today's Communication / Plan
-
Continue antibiotics
Wean oxygen
Check ambulatory pulse oximetry
Increase activity
Discharge planning
Could be downgraded from IMU if remains in the hospital
Assessment
-
44-year-old morbidly obese male with history of untreated obstructive sleep apnea, hypertension who presented with abdominal pain, diarrhea, cough, shortness of breath, fevers noted to have multifocal pneumonia requiring high FiO2 transfer to ICU
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
Impressiom:
Respiratory failure-acute hypoxemic due to multifocal pneumonia
Community-acquired pneumonia-multifocal
Hemoptysis
Sepsis without shock due to multifocal PNA/CAP
OSIEL - resolved
Leukocytosis - at this point likely steroid induced
Mild cfdkwx-pdzhxrcxqj-vekpfnxuxs 12.7
Mild hyponatremia - resolved
Metabolic acidosis
Hyperglycemia
Transaminitis-elevated AST
Conditions present prior to admission:
Hypertension.
Hyperlipidemia.
Untreated CLIF.
Morbid obesity
Plan
Respiratory status has improved
Continue to wean oxygen
Assess for discharge supplemental oxygen needs
Positional therapy as fdmzuv-vmhy-wkyu down given PNA is worse on the right
Incentive spirometry encouraged
Mucus clearing devices - currently on vest therapy and he feels like it is helping
Mucolytics
Monitor hemoptysis-overall decreasing and is stable; trend Hb
Nebulizers with xopenex + atrovent; prn doses for breakthrough symptoms
Chest x-ray 05/07/2024-slight improvement in bilateral pneumonia
Urine Legionella and streptococcal antigens-negative
Blood cultures pending
Sputum culture-many WBCs, few mixed organisms
Stool cultures-no E. coli or sugar toxins detected, Salmonella and Campylobacter cultures pending
MRSA screen negative
Empiric antibiotics to cover community-acquired pneumonia-ceftriaxone 2 g every 24 hours in addition to azithromycin 500 mg daily
Infectious disease consultation obtained-correspondence reviewed
Monitor leukocytosis-currently 16.8
ESR elevated at 34 but not in vasculitis levels
Elevated CRP (>270)
According to a systemic review and meta-analysis of randomized control trials on the efficacy and safety of corticosteroids for the treatment of community-acquired pneumonia (Journal of critical care-2023) the patient would benefit from steroids
which has been shown to reduce the incidence of shock, need for mechanical ventilation, decreased length of hospital and ICU stay as well as decrease mortality. Hydrocortisone was the only steroid that decreased mortality according to the
meta-analysis.
Hydrocortisone 200 mg once for load 05/05/2024 followed by infusion 50 mg IV every 6 hours will begin --> start weaning tomorrow to 50mg IV q8hr and then wean from there
If discharged could be placed on fairly rapid prednisone wean-prednisone 30 mg daily for 3 days, then 20 mg daily for 3 days and then 10 mg daily for 3 days and then discontinue
Follow renal function
Nephrology evaluation if renal function worsens
No hematuria seen on UA
Follow hemoglobin-currently 11.8
Transfuse if needed to keep Hb>7g/dL, plt>50k
Monitor blood sugar with goal >100 and <180mg/dL
Insulin supplementation as needed
DVT prophylaxis-HSQ every 8 hours
Increase activity
Reviewed sleep apnea/sleep disordered breathing symptomatology, associations with untreated sleep apnea and treatment options-will recommend outpatient pulmonary and sleep disorders follow-up
He says that he is intolerant to CPAP - not willing to use during current hospitalization
Reports recurrent infections-May need additional asthma/hypogammaglobulinemia/etc. workup as an outpatient
Dr. Naylor reviewed with at the bedside
Diagnostic data:
Chest x-ray 05/04/2024-bilateral pneumonia right greater than left
CT abdomen and pelvis 05/04/2024-no significant abnormalities identified in the abdomen or pelvis, severe bilateral multifocal pneumonia in the partially visualized lung bases
CT chest 05/05/2024-no evidence for pulmonary embolism, extensive severe bilateral multifocal pneumonia
CXR 05/07/2024:
Bilateral patchy parenchymal airspace opacities, highly suggestive of bilateral pneumonia.
Probably slight improvement in right lower lung parenchymal opacity comparing to music video director radiograph from CT scan of October 05, 2023.
.
Subjective Data
-
Date of Service:
Date of Service: May 08, 2024
Chief Complaint: Pulmonary Follow Up and Dyspnea Follow Up
Subjective:
Feels better, slept better, FiO2 weaned, hemoptysis reduced, no chest pain or abdominal pain
Review of Systems
General: Other (Per HPI)
Objective Data
Data Reviewed
Vital Signs / I&O:
Vital Signs
Temp Pulse Resp BP Pulse Ox
97.8 F 83 16 145/92 93
05/08/24 07:15 05/08/24 07:26 05/08/24 07:26 05/08/24 05:46 05/08/24 09:02
Intake and Output
05/07/24 05/08/24 05/09/24
06:59 06:59 06:59
Intake Total 1979 / 1979 2430 / 2430
Output Total 1850 / 1850 2160 / 2160
Balance 130 / 130 270 / 270
SaO2: 93
Nasal Cannula flow liters per minute: 2
Physical Exam
General: Respiratory Distress (negative), Comfortable and Chills (negative)
HEENT: Normocephalic and Anicteric
Cardiovascular: Regular Rhythm, Peripheral Edema (trace EFRAIN b/l) and Other (tachycardic)
Respiratory: Wheeze (negative), Crackles (Posterior RUL), Rhonchi (negative) and Non-Labored Respirations
GI: Soft, Distended (abdominal obesity), Non Tender and Normal Bowel Sounds
Neurology: AO x 3 and Tremors (negative)
Skin: Warm, Dry, Good Color, Cyanosis (negative), Jaundice (negative) and Rash (n)
Labs/Micro/Reports
Lab Data
05/08/24 04:18
05/08/24 04:18
Microbiology
05/04/24 15:45 Blood/Venous Blood Culture - Preliminary
No Growth in 72 hours- Final report to follow
05/04/24 18:21 Sputum Respiratory Culture - Final
Usual Respiratory Dotty
05/04/24 18:21 Sputum Gram Stain - Final
05/05/24 12:04 Feces/Stool Salmonella/Shigella Culture - Final
No Salmonella, Shigella, Aeromonas or Plesiomonas species
isolated.
05/05/24 12:04 Feces/Stool Campylobacter Culture - Final
No Campylobacter species isolated.
05/05/24 12:04 Feces/Stool Shiga Toxin Test - Final
No E. coli Shiga Toxin 1 or 2 detected.
05/05/24 08:25 Nose MRSA Screen - Final
No Methicillin Resistant Staphylococcus aureus isolated.
05/05/24 12:04 Urine Legionella Urinary Antigen - Final
Negative for Legionella pneumophila Serogroup 1 antigen.
A negative result does not rule out the possiblity of
Legionella infection due to other serogroups or species of
Legionella. Clinical correlation is recommended.
05/05/24 12:04 Urine Streptococcus pneumoniae Antigen (M - Final
Negative for Streptococcus pneumoniae antigen.
A negative result does not exclude infection with
Streptococcus pneumoniae. Clinical correlation is
recommended.
--- NOTE | 2024-05-08 10:52 | W.PN.ID1 ---
Date of Service
Date of Service: May 08, 2024
Today's Communication
At time to discharge, transition to cefuroxime 500mg po bid and azithromycin 500mg po qd through 05/13/24
Assessment / Plan
# Severe multifocal community-acquired PNA, improving
# Acute hypoxemic respiratory failure improving, now on 2L NC
# s/p Severe sepsis
# Leukocytosis - trending down
# Diarrhea - stool cx neg
- Urine Legionella Ag and Pneumococcal Ag negative (not sensitive tests)
-Sputum cx usual resp helen
- blood cx's neg to date.
- Continue ceftriaxone and Azithromycin (d5)
-At time to discharge, transition to cefuroxime 500mg po bid and azithromycin 500mg po qd through 05/13/24
- Wean O2
#Conditions known prior to admission:
Hypertension
Suspected sleep apnea
Class III obesity, BMI 48
Sinusitis
Chief Complaint
-: Pneumonia
Subjective / Review of Systems
Continues to feel improved.
Vital Signs / Physical Exam
Vital Signs
Vital Signs
Temp Pulse Resp BP Pulse Ox
97.8 F 83 16 145/92 93
05/08/24 07:15 05/08/24 07:26 05/08/24 07:26 05/08/24 05:46 05/08/24 10:12
Physical Exam
Constitutional: No Acute Distress and Obese
Pulmonary: Clear
Gastrointestinal: Soft, Non Tender and Non Distended
Genito-Urinary: Negative CVA Tenderness
Neurological: AO x 3
Objective Data
Lab Data
Lab Results
05/08/24 04:18
05/08/24 04:18
ESR 34 mm/hour (0-20) H 05/05/24 11:17
Estimated Creat Clear 112 ml/min 05/08/24 04:18
Lactic Acid 1.8 mmol/L (0.7-2.0) 05/04/24 15:45
Total Bilirubin 0.7 mg/dl (0.2-1.3) 05/04/24 08:17
AST 66 U/L (17-59) H 05/04/24 08:17
ALT 47 U/L (0-50) 05/04/24 08:17
Alkaline Phosphatase 65 U/L (38-126) 05/04/24 08:17
C-Reactive Protein > 270.00 mg/L (0.0-10.00) H 05/05/24 11:17
Most recent labs reviewed.
Micro Results:
05/04/24 15:45 Blood Culture - Preliminary
Blood/Venous No Growth in 72 hours- Final report to follow
05/04/24 18:21 Respiratory Culture - Final
Sputum Usual Respiratory Helen
Gram Stain - Final
05/05/24 12:04 Salmonella/Shigella Culture - Final
Feces/Stool No Salmonella, Shigella, Aeromonas or Plesiomonas species
isolated.
Campylobacter Culture - Final
No Campylobacter species isolated.
Shiga Toxin Test - Final
No E. coli Shiga Toxin 1 or 2 detected.
05/05/24 08:25 MRSA Screen - Final
Nose No Methicillin Resistant Staphylococcus aureus isolated.
05/05/24 12:04 Legionella Urinary Antigen - Final
Urine Negative for Legionella pneumophila Serogroup 1 antigen.
A negative result does not rule out the possiblity of
Legionella infection due to other serogroups or species of
Legionella. Clinical correlation is recommended.
Streptococcus pneumoniae Antigen (M - Final
Negative for Streptococcus pneumoniae antigen.
A negative result does not exclude infection with
Streptococcus pneumoniae. Clinical correlation is
recommended.
05/04/24 08:17 Influenza Types A & B (UZIEL) - Final
Nasal Swab Negative for Influenza A & B, NAAT
Negative results must be combined with clinical observations
and patient history.
Nucleic Acid Amplification test (NAAT)performed on the
[employer] NOW platform.
[2024-05-08] MEDS: ROCEPHIN 2000 MG IV (11:20)
[2024-05-08] MEDS: STERILE WATER FOR INJECTION 20 ML IV (11:20)
--- NOTE | 2024-05-08 16:44 | PTCARENOTE ---
Pt presents as assessed. Aox3. NSR on tele monitor. OOB to chair and in waiting room throughout shift. Weaned to 2L NC, sating mid 90s. Assessment and care as documented.
[2024-05-08] MEDS: OCEAN, SALINE MIST 50 SPRAYS NASAL (19:48)
[2024-05-08] MEDS: ROBITUSSIN AC 10 ML PO (21:42)
[2024-05-08] MEDS: MELATONIN 10 MG PO (21:42)
[2024-05-09 04:00] VITALS: BP 164/94
[2024-05-09 04:03] VITALS: BMI 47.2
[2024-05-09 04:21] LABS: Hematocrit 34.5 % (39.0-52.0); Hemoglobin 12.1 g/dL (13.0-18.0); Mean Corp Hgb Conc. 35.1 g/dL (33.0-37.0); Mean Corpuscular Hgb 29.5 pg (27.0-31.0); Mean Corpuscular Volume 84.1 fL (80.0-94.0); Mean Platelet Volume 9.1 fL (7.4-10.4); Platelet Count 367 10^3/uL (130-400); Red Cell Dist. Width 12.8 % (11.5-14.5); White Blood Cell Count 14.8 10^3/uL (4.8-10.8)
[2024-05-09 04:35] LABS: Blood Urea Nitrogen 23 mg/dl (9-20); Calcium 9.6 mg/dl (8.4-10.2); Carbon Dioxide 27 mmol/L (22-30); Chloride 103 mmol/L (98-107); Estimated Creatinine Clearance 112 ml/min; Glucose 135 mg/dl (70-99); Potassium 4.9 mmol/L (3.5-5.1); Sodium 141 mmol/L (135-145); eGFR > 60.00
--- NOTE | 2024-05-09 05:33 | PTCARENOTE ---
No acute events overnight. Waiting for transfer to telemetry floor. Remains on 2 liters NC.
--- NOTE | 2024-05-09 07:16 | W.PN.PUL.V3 ---
Today's Communication / Plan
-
Assess discharge supplemental oxygen needs
Finite course of oral antibiotics
Outpatient radiographic and pulmonary/sleep disorders follow-up
Reviewed with and primary team
Assessment
-
44-year-old morbidly obese male with history of untreated obstructive sleep apnea, hypertension who presented with abdominal pain, diarrhea, cough, shortness of breath, fevers noted to have multifocal pneumonia requiring high FiO2 transfer to ICU
for potential intubation-chief underwriter consulted for respiratory failure/pneumonia/hemoptysis/critical care management 05/05/2024.
Impressiom:
Respiratory failure-acute hypoxemic due to multifocal pneumonia
Community-acquired pneumonia-multifocal
Hemoptysis
Sepsis without shock due to multifocal PNA/CAP
OSIEL - resolved
Leukocytosis - at this point likely steroid induced
Mild jcuwta-puxplteqia-viynouogfz 12.7
Mild hyponatremia - resolved
Metabolic acidosis
Hyperglycemia
Transaminitis-elevated AST
Conditions present prior to admission:
Hypertension.
Hyperlipidemia.
Untreated CLIF.
Morbid obesity
Plan
Respiratory status continues to improve-hemoptysis resolved
Continue to wean oxygen
Walk test 05/08/2024-desaturated to 88%-repeat today prior to discharge-suspect will not require home oxygen
Positional therapy as ptbcuy-awoy-pdxy down given PNA is worse on the right
Incentive spirometry encouraged
Mucus clearing devices - currently on vest therapy and he feels like it is helping
Mucolytics
Nebulizers with xopenex + atrovent; prn doses for breakthrough symptoms
Chest x-ray 05/07/2024-slight improvement in bilateral pneumonia
Urine Legionella and streptococcal antigens-negative
Blood cultures pending
Sputum culture-many WBCs, few mixed organisms
Stool cultures-no E. coli or sugar toxins detected, Salmonella and Campylobacter cultures pending
MRSA screen negative
Empiric antibiotics to cover community-acquired pneumonia-ceftriaxone 2 g every 24 hours in addition to azithromycin 500 mg daily
Infectious disease consultation obtained-correspondence reviewed
Monitor leukocytosis-currently 14.8 and much improved
ESR elevated at 34 but not in vasculitis levels
Elevated CRP (>270)
According to a systemic review and meta-analysis of randomized control trials on the efficacy and safety of corticosteroids for the treatment of community-acquired pneumonia (Journal of critical care-2023) the patient would benefit from steroids
which has been shown to reduce the incidence of shock, need for mechanical ventilation, decreased length of hospital and ICU stay as well as decrease mortality. Hydrocortisone was the only steroid that decreased mortality according to the
meta-analysis.
Hydrocortisone 200 mg once for load 05/05/2024 followed by infusion 50 mg IV every 6 hours will begin --> start weaning tomorrow to 50mg IV q8hr and then wean from there
At the time of discharge he could be placed on fairly rapid prednisone wean-prednisone 30 mg daily for 3 days, then 20 mg daily for 3 days and then 10 mg daily for 3 days and then discontinue
Renal function has normalized
Follow hemoglobin-currently 12.1
Transfuse if needed to keep Hb>7g/dL, plt>50k
Monitor blood sugar with goal >100 and <180mg/dL
Insulin supplementation as needed
DVT prophylaxis-HSQ every 8 hours
Increase activity
Reviewed sleep apnea/sleep disordered breathing symptomatology, associations with untreated sleep apnea and treatment options-will recommend outpatient pulmonary and sleep disorders follow-up
He says that he is intolerant to CPAP - not willing to use during current hospitalization
Reports recurrent infections-may need additional asthma/hypogammaglobulinemia/etc. workup as an outpatient
Dr. Naylor reviewed with at the bedside-also reviewed with primary team-stable for proposed discharge with outpatient pulmonary follow-up
Diagnostic data:
Chest x-ray 05/04/2024-bilateral pneumonia right greater than left
CT abdomen and pelvis 05/04/2024-no significant abnormalities identified in the abdomen or pelvis, severe bilateral multifocal pneumonia in the partially visualized lung bases
CT chest 05/05/2024-no evidence for pulmonary embolism, extensive severe bilateral multifocal pneumonia
CXR 05/07/2024:
Bilateral patchy parenchymal airspace opacities, highly suggestive of bilateral pneumonia.
Probably slight improvement in right lower lung parenchymal opacity comparing to operating room rn radiograph from CT scan of October 05, 2023.
.
Subjective Data
-
Date of Service:
Date of Service: May 09, 2024
Chief Complaint: Pulmonary Follow Up and Dyspnea Follow Up
Subjective:
Feels better, no hemoptysis, no chest pain, less short of breath with exertion, slept well, no abdominal pain
Review of Systems
General: Other (Per HPI)
Objective Data
Data Reviewed
Vital Signs / I&O:
Vital Signs
Temp Pulse Resp BP Pulse Ox
97.3 F 85 18 164/94 97
05/09/24 03:35 05/09/24 07:00 05/08/24 20:06 05/09/24 04:00 05/09/24 07:00
Intake and Output
05/08/24 05/09/24 05/10/24
06:59 06:59 06:59
Intake Total 2430 / 2430 240 / 240
Output Total 2160 / 2160
Balance 270 / 270 240 / 240
SaO2: 97
Nasal Cannula flow liters per minute: 2
Physical Exam
General: Respiratory Distress (negative), Comfortable and Chills (negative)
HEENT: Normocephalic and Anicteric
Cardiovascular: Regular Rhythm, Peripheral Edema (trace EFRAIN b/l) and Other (tachycardic)
Respiratory: Wheeze (negative), Crackles (Posterior RUL), Rhonchi (negative) and Non-Labored Respirations
GI: Soft, Distended (abdominal obesity), Non Tender and Normal Bowel Sounds
Neurology: AO x 3 and Tremors (negative)
Skin: Warm, Dry, Good Color, Cyanosis (negative), Jaundice (negative) and Rash (n)
Labs/Micro/Reports
Lab Data
05/09/24 04:00
05/09/24 04:00
Microbiology
05/04/24 15:45 Blood/Venous Blood Culture - Preliminary
No Growth in 4 days- Final report to follow
05/04/24 18:21 Sputum Respiratory Culture - Final
Usual Respiratory Dotty
05/04/24 18:21 Sputum Gram Stain - Final
05/05/24 12:04 Feces/Stool Salmonella/Shigella Culture - Final
No Salmonella, Shigella, Aeromonas or Plesiomonas species
isolated.
05/05/24 12:04 Feces/Stool Campylobacter Culture - Final
No Campylobacter species isolated.
05/05/24 12:04 Feces/Stool Shiga Toxin Test - Final
No E. coli Shiga Toxin 1 or 2 detected.
05/05/24 08:25 Nose MRSA Screen - Final
No Methicillin Resistant Staphylococcus aureus isolated.
05/05/24 12:04 Urine Legionella Urinary Antigen - Final
Negative for Legionella pneumophila Serogroup 1 antigen.
A negative result does not rule out the possiblity of
Legionella infection due to other serogroups or species of
Legionella. Clinical correlation is recommended.
05/05/24 12:04 Urine Streptococcus pneumoniae Antigen (M - Final
Negative for Streptococcus pneumoniae antigen.
A negative result does not exclude infection with
Streptococcus pneumoniae. Clinical correlation is
recommended.
[2024-05-09 07:31] LABS: Atypical Lymphocytes 1 %; Band Neutrophils 6 % (0-3); Lymphocytes 24 % (20-51); Metamyelocytes 3 % (-); Monocytes 6 % (2-9); Myelocytes 5 % (-); Segmented Neutrophils 55 % (42-75)
[2024-05-09 07:32] LABS: Anisocytosis Slight; Hypochromasia 1+; Macrocytosis Few; Normal RBC Morphology No; Platelets Checked Yes; Total Cells Counted 100
[2024-05-09] MEDS: ATROVENT NEBULES 0.5 MG INH (07:39)
[2024-05-09] MEDS: XOPENEX 1.25 MG INHALANT SOLUTION INH (07:39)
--- NOTE | 2024-05-09 07:43 | W.PN.HOSP.TC ---
Addendum entered and electronically signed by Susana Treadwell MD 05/09/24 13:27:
total DC time 35 min
Original Note:
Today's Communication/Plan
-
see A/P
Assessment / Plan
Assessment / Plan
HPI: 44 yo male with PMH HTN presented with abdominal pain, cough, SOB, and fever. His symptoms began 5 days AND [employer] with sinus pressure, congestion, and productive cough. He notes his daughter was sick with a cold recently so he thought he caught her
cold. Then 3 days [employer] he developed abdominal pain, bloating, nausea, vomiting and diarrhea after eating pork chops, as well as fevers. He describes the diarrhea as large-volume watery stools without blood, and the last time he vomited was the day
[employer]. Within the last couple days he has also noticed a red tinge to the sputum he's been coughing up. He tried to control his symptoms with Dayquil, Nyquil and nasal lavage without relief. Due to persistent/worsening symptoms he presented to the
emergency department for evaluation. He denies any chronic lung conditions, and denies any prior history of pneumonia.
A/P:
# Severe Sepsis secondary to Community Acquired Pneumonia
CXR noted Bilateral pneumonia, right worse than left.
CT Chest: negative for PE, confirmed extensive severe bilateral multifocal pneumonia
CT AP: No significant abnormality identified
Ceftriaxone and Azithromycin -> cefuroxime 500mg po bid and azithromycin 500mg po qd through 05/13/24 upon discharge
IV hydrocortisone to be transitioned to to PO prednisone with taper
Cont Vest therapy during hospital stay
Cont Duonebs with Levalbuterol
Strep and Legionella antigens negative, MRSA screen negative, sputum culture usual respiratory helen, blood culture negative, COVID/Flu negative
ID on board, Pulm on board
# Acute hypoxic respiratory failure, improving
high flow NC at FIO2 100% -> 2L NC
Check walking pulse Ox prior to DC
Pulm on board
# OSIEL, resolved
SCr 1.5 on admission, today at 1.1
# Essential Hypertension
resumed [employer] irbesartan with holding parameter
# Class III Obesity, Affects all aspects of care
# Obstructive Sleep Apnea
BMI 48
encourage prone position
DVT proph: HSQ
Code Status: Full Code
DW RN
DW at bedside
Anticipated Discharge: Today
Subjective/Interval History
-
Date of Service: May 09, 2024
Objective Data
-
Labs:
Laboratory Results
05/09/24
04:00
WBC 14.8 H
Hgb 12.1 L
Hct 34.5 L
Plt Count 367
Sodium 141
Potassium 4.9
Chloride 103
Carbon Dioxide 27
BUN 23 H
Creatinine 1.1
Glucose 135 H
Calcium 9.6
Vital Signs:
Vital Signs
Temp Pulse Resp BP Pulse Ox
36.3 C 85 18 164/94 97
05/09/24 03:35 05/09/24 07:00 05/08/24 20:06 05/09/24 04:00 05/09/24 07:17
I&O
05/08/24 05/09/24 05/10/24
06:59 06:59 06:59
Intake Total 2430 / 2430 240 / 240
Output Total 2160 / 2160
Balance 270 / 270 240 / 240
[2024-05-09] MEDS: VISBIOME 2 CAP PO (08:58)
[2024-05-09] MEDS: AVAPRO 300 MG PO (08:58)
[2024-05-09] MEDS: MUCINEX 600 MG PO (08:59)
[2024-05-09] MEDS: SOLU-CORTEF 50 MG IV (08:59)
[2024-05-09] MEDS: ZITHROMAX 500 MG PO (09:02)
[2024-05-09] MEDS: HEPARIN 5000 UNITS SC (09:03)
[2024-05-09] MEDS: STERILE WATER FOR INJECTION 20 ML IV (09:05)
[2024-05-09] MEDS: ROCEPHIN 2000 MG IV (09:05)
--- NOTE | 2024-05-09 09:18 | W.PN.ID1 ---
Date of Service
Date of Service: May 09, 2024
Today's Communication
Can transition ceftriaxone and Azithromycin (d6) to cefuroxime 500mg po bid and azithromycin 500mg po qd through 05/13/24
Assessment / Plan
# Severe multifocal community-acquired PNA, improving
# Acute hypoxemic respiratory failure - resolved
# s/p Severe sepsis
# Leukocytosis - trending down, on steroid
# Diarrhea resolved- stool cx neg
- Urine Legionella Ag and Pneumococcal Ag negative (not sensitive tests)
-Sputum cx usual resp helen
- blood cx's neg to date.
- Can transition ceftriaxone and Azithromycin (d6) to cefuroxime 500mg po bid and azithromycin 500mg po qd through 05/13/24
#Conditions known prior to admission:
Hypertension
Suspected sleep apnea
Class III obesity, BMI 48
Sinusitis
Chief Complaint
-: Pneumonia
Subjective / Review of Systems
Now off oxygen. Feels well.
Vital Signs / Physical Exam
Vital Signs
Vital Signs
Temp Pulse Resp BP Pulse Ox
97.3 F 86 18 164/94 96
05/09/24 03:35 05/09/24 07:45 05/09/24 07:45 05/09/24 04:00 05/09/24 07:45
Physical Exam
Constitutional: No Acute Distress and Comfortable
Cardiovascular: Regular Rate and S1/S2
Pulmonary: Clear
Gastrointestinal: Soft, Non Tender and Non Distended
Extremities: Negative Edema
Neurological: AO x 3
Objective Data
Lab Data
Lab Results
05/09/24 04:00
05/09/24 04:00
ESR 34 mm/hour (0-20) H 05/05/24 11:17
Estimated Creat Clear 112 ml/min 05/09/24 04:00
Lactic Acid 1.8 mmol/L (0.7-2.0) 05/04/24 15:45
Total Bilirubin 0.7 mg/dl (0.2-1.3) 05/04/24 08:17
AST 66 U/L (17-59) H 05/04/24 08:17
ALT 47 U/L (0-50) 05/04/24 08:17
Alkaline Phosphatase 65 U/L (38-126) 05/04/24 08:17
C-Reactive Protein > 270.00 mg/L (0.0-10.00) H 05/05/24 11:17
Most recent labs reviewed.
Micro Results:
05/04/24 15:45 Blood Culture - Preliminary
Blood/Venous No Growth in 4 days- Final report to follow
05/04/24 18:21 Respiratory Culture - Final
Sputum Usual Respiratory Helen
Gram Stain - Final
05/05/24 12:04 Salmonella/Shigella Culture - Final
Feces/Stool No Salmonella, Shigella, Aeromonas or Plesiomonas species
isolated.
Campylobacter Culture - Final
No Campylobacter species isolated.
Shiga Toxin Test - Final
No E. coli Shiga Toxin 1 or 2 detected.
05/05/24 08:25 MRSA Screen - Final
Nose No Methicillin Resistant Staphylococcus aureus isolated.
05/05/24 12:04 Legionella Urinary Antigen - Final
Urine Negative for Legionella pneumophila Serogroup 1 antigen.
A negative result does not rule out the possiblity of
Legionella infection due to other serogroups or species of
Legionella. Clinical correlation is recommended.
Streptococcus pneumoniae Antigen (M - Final
Negative for Streptococcus pneumoniae antigen.
A negative result does not exclude infection with
Streptococcus pneumoniae. Clinical correlation is
recommended.
05/04/24 08:17 Influenza Types A & B (UZIEL) - Final
Nasal Swab Negative for Influenza A & B, NAAT
Negative results must be combined with clinical observations
and patient history.
Nucleic Acid Amplification test (NAAT)performed on the
[employer] platform.
[2024-05-09 09:31] VITALS: BP 164/94
[2024-05-09 09:34] VITALS: BP 160/93
--- NOTE | 2024-05-09 10:20 | PTCARENOTE ---
Pt now Dc awaiting . Instuctions given no questions at this time
--- NOTE | 2024-05-09 10:38 | PTCARENOTE ---
Pt left via [facility] without incident
--- NOTE | 2024-05-09 13:14 | W.DCSUMMARY ---
Discharge Summary
Discharge Data
Date of Admission: 05/04/24
Date of Discharge: 05/09/24
-
Pending Results: No
Hospital Course
Principal Diagnosis:
Severe Sepsis on admission secondary to Community Acquired Pneumonia
Resolved acute hypoxic respiratory failure
Resolved acute kidney injury
Chronic Diagnoses:�
Essential Hypertension on Irbesartan
Class III Obesity, BMI 48
Obstructive Sleep Apnea
Consultations:�
Pulmonary
Infectious disease
Procedures:�
None
Clinical course:�
This is a 44-year-old male with past medical history as stated above, who presented with fever, cough, and shortness of breath.
Problem 1:
Severe Sepsis on admission secondary to Community Acquired Pneumonia.
His CXR noted Bilateral pneumonia, right worse than left.
His CT Chest was negative for PE, confirmed extensive severe bilateral multifocal pneumonia.
He was treated with IV antibiotics Ceftriaxone and Azithromycin while in the hospital, and was discharged with cefuroxime 500mg po bid and azithromycin 500mg po qd through 05/13/24.
He also received IV hydrocortisone while in the hospital, which was transitioned to PO prednisone with taper upon discharge.
Of note, his Strep and Legionella antigens were negative, MRSA screen was negative, sputum culture grew usual respiratory helen, blood culture was negative, and COVID/Flu was negative.
Problem 2:
Acute hypoxic respiratory failure, resolved.
He was requiring high flow nasal cannula oxygen support on admission, and this was weaned back to room air.
His walking pulse ox prior to discharge showed good saturation with ambulation on room air.
He can follow-up with pulmonary outpatient for sleep apnea eval.
Problem 3:
Resolved acute kidney injury.
His creatinine was at 1.5 on admission, which trended down to 1.1.
As for the rest of his medical problems, they were stable during his hospital stay.
Discharge Plan
-
Patient Disposition: Home (Routine Discharge)
Discharge Diagnosis/Procedures: Acute hypoxic respiratory failure due to community-acquired pneumonia
Condition: Fair
Diet: As tolerated
Activity: As tolerated
Driving Restrictions: Not until seen by your Dr
Activity Restrictions/Additional Instructions:
Follow up with Pulm for outpatient sleep study.
Referrals:
Yas Altamirano DO [Family Provider] - in less than 1 week
Yg Cook MD [Active] - in four to six weeks (full PFTs on day of office visit)
Prescriptions:
New
cefuroxime axetil 500 mg tablet
500 mg PO Q12H 5 Days Qty: 10 0RF
azithromycin 500 mg tablet
500 mg PO DAILY 5 Days Qty: 5 0RF
prednisone 10 mg Tablet
See Rx Instructions .ROUTE .COMPLEX Qty: 45 0RF
Rx Instructions:
Take By Mouth:
50 mg daily x3 days, 40 mg daily x3 days,
30 mg daily x3 days, 20 mg daily x3 days,
10 mg daily x3 days
Continued
irbesartan 300 mg Tablet
300 mg PO DAILY
Discharge Orders:
Discharge Patient (As Directed); Ordered 05/09/24
Ordered By: Susana Treadwell
Discharge Date and Time
Discharge Date/Time: 05/09/24 10:40
Print Language: KITTITIAN
--- NOTE | 2024-05-09 15:45 | CM ---
patient is stable for dc home with no needs.
== END 2024-05-09 10:40 | disposition home or self-care (01) | DRG 871 ==
LOC: IMU 15:04
PROVIDERS: Nurse Practitioner Family; Physician Assistant; Physician Assistant Medical; ADMITTING PHYSICIAN Internal Medicine; ATTENDING PHYSICIAN Internal Medicine; CONSULT PHYSICIAN Internal Medicine Critical Care Medicine; EMERGENCY PHYSICIAN Student in an Organized Health Care Education/Training Program; FAMILY PHYSICIAN Family Medicine; OTHER PHYSICIAN Internal Medicine Infectious Disease
PROC: 5A0945A Assistance with Respiratory Ventilation, 24-96 Consecutive Hours, High Flow/Velocity Cannula (ICD-10-PCS; 2024-05-05)
DX: A41.9 Sepsis, unspecified organism (principal); J18.9 Pneumonia, unspecified organism; J96.01 Acute respiratory failure with hypoxia; K92.1 Melena; Z68.42 Body mass index [BMI] 45.0-49.9, adult; R04.2 Hemoptysis; N17.9 Acute kidney failure, unspecified; E87.1 Hypo-osmolality and hyponatremia; E87.20 Acidosis, unspecified; R65.20 Severe sepsis without septic shock; I10 Essential (primary) hypertension; G47.33 Obstructive sleep apnea (adult) (pediatric); E66.01 Morbid (severe) obesity due to excess calories; E78.5 Hyperlipidemia, unspecified; F17.210 Nicotine dependence, cigarettes, uncomplicated; D64.9 Anemia, unspecified; R73.9 Hyperglycemia, unspecified; R74.01 Elevation of levels of liver transaminase levels; R14.0 Abdominal distension (gaseous); R19.7 Diarrhea, unspecified; D72.829 Elevated white blood cell count, unspecified; Z87.11 Personal history of peptic ulcer disease; Z11.52 Encounter for screening for COVID-19
CPT/HCPCS: 36600; 71046; 71275; 74177; 80048; 80053; 81003; 81015; 82805; 83605; 83690; 83735; 83880; 85025; 85027; 85379; 85652; 86140; 87040; 87045; 87046; 87070; 87077; 87205; 87427; 87449; 87502; 87811; 87899; 93005; 93970; 94640; 94669; 96361; 96374; 97163; 97530; 99285; Q9967